=== PATIENT | female | born 1955 | race Caucasian/White ===

== ENCOUNTER 2018-04-02 11:15 | Emergency (ER) | payer MEDICARE, SELFPAY ==
[~2018-04-02] VITALS: Ht 165.1 cm; Wt 104.3 kg
[~2018-04-02 11:15] MED LIST: ASPI81CH PO; CEPH500 PO; CRUTCH3 USE; CYCL10; CYCL10 PO; Ferrous Sulfat325 M2 PO; GLIP5 PO; HYDACE5 PO; HYDCHL25; HYDCHL25 PO; LOSARTAN-HCTZ1 EAC1 PO; NAPR550 PO; Naprosyn500 MG PO; PANT40 PO; Pravastatin Sod20 MG PO; SPIR25; SPIR25 PO; SULTRIDS PO; Ultram50 MG PO; [UNRECOGNIZED DRUG - OTHER]
[2018-04-02] MEDS ORDERED: BECL25NI (12:45)
[2018-04-02] MEDS ORDERED: ERY PO (12:45)
[2018-04-02] MEDS ORDERED: ROBITUSSIN COU237 ML PO (12:45)
== END 2018-04-02 12:54 | disposition home or self-care (01) ==
LOC: ER 11:15
DX: J40 Bronchitis, not specified as acute or chronic (principal); J01.90 Acute sinusitis, unspecified; B96.89 Other specified bacterial agents as the cause of diseases classified elsewhere; I10 Essential (primary) hypertension; Z91.018 Allergy to other foods; Z91.011 Allergy to milk products; Z88.0 Allergy status to penicillin; Z91.02 Food additives allergy status; Z79.899 Other long term (current) drug therapy; Z79.82 Long term (current) use of aspirin

== ENCOUNTER 2018-11-06 12:14 | Emergency (ER) | payer MEDICAID ==
[~2018-11-06] VITALS: Ht 165.1 cm; Wt 104.3 kg
[~2018-11-06 12:14] MED LIST changes: +BECL25NI; +ERY PO; +ROBITUSSIN COU237 ML PO
== END 2018-11-06 13:42 | disposition left against medical advice (07) ==
LOC: ER 12:14
DX: K08.89 Other specified disorders of teeth and supporting structures (principal)
CPT/HCPCS: 99282

== ENCOUNTER → 2019-03-21 | Outpatient (CLI) | payer MEDICARE | END | disposition home or self-care (01) | LOC: LAB SHORT 11:46 → LAB 11:46 | DX: N89.8 Other specified noninflammatory disorders of vagina (principal) | CPT/HCPCS: 87070; 87077; 87147; 87186; 87205 ==

== ENCOUNTER 2019-03-27 11:49 | Emergency (ER) | payer MEDICARE ==
[~2019-03-27] VITALS: Ht 165.1 cm; Wt 99.8 kg
[2019-03-27 12:42] LABS: BASOPHILS ABSOLUTE AUTO 0.06 K/mm3 (0.00-0.23); BASOPHILS PERCENT AUTO 1 % (0-2); EOSINOPHILS ABSOLUTE AUTO 0.15 K/mm3 (0.00-0.68); EOSINOPHILS PERCENT AUTO 3 % (0-6); Hematocrit 42.3 % (33.0-51.0); Hemoglobin 14.1 g/dL (11.5-16.0); IMMATURE GRAN ABSOLUTE AUTO 0.02 K/mm3 (0.00-0.10); IMMATURE GRAN PERCENT AUTO 0 % (0-1); LYMPHOCYTES ABSOLUTE AUTO 0.79 K/mm3 (0.84-5.20); LYMPHOCYTES PERCENT AUTO 15 % (21-46); MONOCYTES ABSOLUTE AUTO 0.65 K/mm3 (0.16-1.47); MONOCYTES PERCENT AUTO 12 % (4-13); Mean Corpuscular HGB 28.3 pg (26.0-34.0); Mean Corpuscular HGB Conc 33.3 g/dL (31.5-36.5); Mean Corpuscular Volume 85 fL (80-100); Mean Platelet Volume 9.9 fL (9.1-12.4); NEUTROPHILS ABSOLUTE AUTO 3.72 K/mm3 (1.96-9.15); NEUTROPHILS PERCENT AUTO 69 % (41-73); Platelet Count 282 K/mm3 (150-400); RDW Coefficient Variation 13.2 % (11.7-14.2); Red Blood Cell Count 4.98 M/mm3 (3.80-5.20); White Blood Cell Count 5.39 K/mm3 (4.00-11.30)
[2019-03-27 13:14] LABS: Alanine Aminotransfer (ALT/SGP 28 U/L (12-78); Alk Phos 86 U/L (50-136); Anion Gap 7 mmol/L (6-16); Aspartate Aminotrans (AST/SGOT 13 U/L (12-37); Bilirubin, Total 0.3 mg/dL (0.1-1.0); Blood Urea Nitrogen 27 mg/dL (8-24); Bun/Creatinine Ratio 34.3 (12.0-20.0); CO2, Blood 26 mmol/L (21-32); Calcium, Blood 9.4 mg/dL (8.5-10.1); Chloride, Blood 103 mmol/L (98-108); Creatinine, Blood 0.79 mg/dL (0.40-1.00); Globulin, Blood 4.2 g/dL (2.2-4.0); Glomerular Filtration Rate >60 (60-); Glucose, Blood 235 mg/dL (70-99); Potassium, Blood 3.7 mmol/L (3.5-5.5); Sodium, Blood 136 mmol/L (136-145); Total Protein, Blood 8.2 g/dL (6.4-8.2)
[2019-03-27 13:16] LABS: Troponin I <0.015 ng/mL (0.000-0.040)
== END 2019-03-27 16:04 | disposition home or self-care (01) ==
LOC: ER 11:49
PROVIDERS: Physician Assistant
DX: Z77.098 Contact with and (suspected) exposure to other hazardous, chiefly nonmedicinal, chemicals (principal); R06.00 Dyspnea, unspecified; R51 Headache; R05 Cough; E11.9 Type 2 diabetes mellitus without complications; I10 Essential (primary) hypertension; Z88.0 Allergy status to penicillin; Z91.018 Allergy to other foods; Z91.011 Allergy to milk products; Z79.82 Long term (current) use of aspirin; Z79.899 Other long term (current) drug therapy
CPT/HCPCS: 36415; 71046; 80053; 84484; 85025; 93005; 93010; 96374; 96375; 99284-25; J1885; J2930

== ENCOUNTER → 2019-04-09 | Outpatient (CLI) | payer MEDICARE, OTHER ==
[~2019-04-09] MED LIST changes: +METPRE4DP PO
== END | disposition home or self-care (01) ==
LOC: LAB UCHC 16:03 → LAB SHORT 16:03
DX: A49.02 Methicillin resistant Staphylococcus aureus infection, unspecified site (principal); N89.8 Other specified noninflammatory disorders of vagina
CPT/HCPCS: 87070; 87081; 87186; 87205

== ENCOUNTER → 2019-05-07 | Outpatient (CLI) | payer MEDICARE, OTHER | END | disposition home or self-care (01) | LOC: LAB 15:50 → LAB SHORT 15:50 | DX: A49.02 Methicillin resistant Staphylococcus aureus infection, unspecified site (principal); N89.8 Other specified noninflammatory disorders of vagina | CPT/HCPCS: 87070; 87077; 87081; 87147; 87186; 87205 ==

== ENCOUNTER → 2019-05-20 | Outpatient (CLI) | payer MEDICARE, OTHER | END | disposition home or self-care (01) | LOC: LAB 11:00 → LAB SHORT 11:00 | DX: A49.02 Methicillin resistant Staphylococcus aureus infection, unspecified site (principal) | CPT/HCPCS: 87070; 87077; 87081; 87147; 87186; 87205 ==

== ENCOUNTER 2019-10-25 18:01 | Emergency (ER) | payer OTHER, MEDICARE ==
[~2019-10-25] VITALS: Ht 165.1 cm; Wt 90.7 kg
[2019-10-25] MEDS ORDERED: METF500 PO (20:16)
== END 2019-10-25 22:03 | disposition home or self-care (01) ==
LOC: ER 18:01
DX: S09.90XA Unspecified injury of head, initial encounter (principal); S16.1XXA Strain of muscle, fascia and tendon at neck level, initial encounter; I11.0 Hypertensive heart disease with heart failure; I50.9 Heart failure, unspecified; E11.9 Type 2 diabetes mellitus without complications; E78.5 Hyperlipidemia, unspecified; V89.2XXA Person injured in unspecified motor-vehicle accident, traffic, initial encounter
CPT/HCPCS: 70450; 72125; 99284-25

== ENCOUNTER 2020-01-20 12:51 | Emergency (ER) | payer MEDICARE, OTHER ==
[~2020-01-20] VITALS: Ht 165.1 cm; Wt 104.3 kg
[~2020-01-20 12:51] MED LIST changes: +METF500 PO
== END 2020-01-20 14:23 | disposition left against medical advice (07) ==
LOC: ER 12:51
DX: Z53.21 Procedure and treatment not carried out due to patient leaving prior to being seen by health care provider (principal)
CPT/HCPCS: 99281

== ENCOUNTER 2020-08-04 11:41 | Emergency (ER) | payer MEDICARE, OTHER ==
[~2020-08-04] VITALS: Ht 165.1 cm; Wt 104.3 kg
[2020-08-04] MEDS ORDERED: TUSSIN MUC100 MG/5 M PO (16:17)
[2020-08-04] MEDS ORDERED: ALBU90OI INH (16:17)
== END 2020-08-04 16:30 | disposition home or self-care (01) ==
LOC: ER 11:41
DX: R06.02 Shortness of breath (principal); Z88.0 Allergy status to penicillin; Z91.011 Allergy to milk products; Z91.018 Allergy to other foods; Z79.82 Long term (current) use of aspirin; Z79.899 Other long term (current) drug therapy; Z79.84 Long term (current) use of oral hypoglycemic drugs; I10 Essential (primary) hypertension; E11.9 Type 2 diabetes mellitus without complications
CPT/HCPCS: 99283

== ENCOUNTER 2021-02-14 10:50 | Inpatient (IN) | payer MEDICARE ==
[~2021-02-14] VITALS: Ht 165.1 cm; Wt 103.0 kg
[~2021-02-14 10:50] MED LIST changes: +ALBU90OI INH; -ASPI81CH PO; -LOSARTAN-HCTZ1 EAC1 PO; -METF500 PO; +TUSSIN MUC100 MG/5 M PO
[2021-02-14 11:42] LABS: BASOPHILS ABSOLUTE AUTO 0.04 K/mm3 (0.00-0.23); BASOPHILS PERCENT AUTO 1 % (0-2); EOSINOPHILS ABSOLUTE AUTO 0.02 K/mm3 (0.00-0.68); EOSINOPHILS PERCENT AUTO 0 % (0-6); Hematocrit 37.5 % (33.0-51.0); Hemoglobin 12.8 g/dL (11.5-16.0); IMMATURE GRAN ABSOLUTE AUTO 0.03 K/mm3 (0.00-0.10); IMMATURE GRAN PERCENT AUTO 0 % (0-1); LYMPHOCYTES ABSOLUTE AUTO 0.42 K/mm3 (0.84-5.20); LYMPHOCYTES PERCENT AUTO 5 % (21-46); MONOCYTES ABSOLUTE AUTO 0.66 K/mm3 (0.16-1.47); MONOCYTES PERCENT AUTO 8 % (4-13); Mean Corpuscular HGB 27.6 pg (26.0-34.0); Mean Corpuscular HGB Conc 34.1 g/dL (31.5-36.5); Mean Corpuscular Volume 81 fL (80-100); Mean Platelet Volume 9.7 fL (9.1-12.4); NEUTROPHILS ABSOLUTE AUTO 7.31 K/mm3 (1.96-9.15); NEUTROPHILS PERCENT AUTO 86 % (41-73); Platelet Count 331 K/mm3 (150-400); RDW Coefficient Variation 13.3 % (11.7-14.2); Red Blood Cell Count 4.63 M/mm3 (3.80-5.20); White Blood Cell Count 8.48 K/mm3 (4.00-11.30)
[2021-02-14 11:59] LABS: Alanine Aminotransfer (ALT/SGP 23 U/L (12-78); Albumin, Blood 3.7 g/dL (3.4-5.0); Albumin/Globulin Ratio 0.9 (0.8-1.8); Alk Phos 82 U/L (50-136); Anion Gap 8 mmol/L (6-16); Aspartate Aminotrans (AST/SGOT 20 U/L (12-37); Bilirubin, Total 0.4 mg/dL (0.1-1.0); Blood Urea Nitrogen 20 mg/dL (8-24); Bun/Creatinine Ratio 23.5 (12.0-20.0); CO2, Blood 26 mmol/L (21-32); Calcium, Blood 9.4 mg/dL (8.5-10.1); Chloride, Blood 99 mmol/L (98-108); Creatinine, Blood 0.85 mg/dL (0.40-1.00); Globulin, Blood 3.9 g/dL (2.2-4.0); Glomerular Filtration Rate >60 (60-); Glucose, Blood 391 mg/dL (70-99); Potassium, Blood 3.5 mmol/L (3.5-5.5); Sodium, Blood 133 mmol/L (136-145); Total Protein, Blood 7.6 g/dL (6.4-8.2)
[2021-02-14] MEDS ORDERED: GLUCOPHAGE1000 M1 PO (12:41)
[2021-02-14] MEDS ORDERED: GLIP5 PO (12:41)
[2021-02-14] MEDS ORDERED: LOSA50 PO (12:42)
[2021-02-14] MEDS ORDERED: HYDCHL25 PO (12:43)
[2021-02-14] MEDS ORDERED: SPIR50 PO (12:43)
[2021-02-14] MEDS ORDERED: Ventolin/Prove6.7 GM INH (12:44)
[2021-02-14] MEDS ORDERED: ASPI325EC PO (14:56)
[2021-02-14] MEDS ORDERED: IBU800 M1 PO (14:59)
[2021-02-14 16:23] LABS: Source, Urine Clean Catch
[2021-02-14 16:29] LABS: Appearance, Urine Clear (Clear); Bilirubin, Urine Neg (Neg); Blood, Urine Neg (Neg); Color, Urine Yellow (P-Yellow); Glucose Qualitative, Urine 4+ (Neg); Ketones, Urine 2+ (Neg); Leukocyte Esterase, Urine 1+ (Neg); Nitrite, Urine Neg (Neg); Protein, Urine 2+ (Neg); Urobilinogen, Urine NORM (Normal)
--- NOTE | 2021-02-14 16:37 | NUR ---
POC GLUCOSE WAS 242 AT 1637. ARMBAND WAS INVALID ON METER. LAB NOTIFIED.
[2021-02-14 16:44] LABS: Bacteria Few /hpf; Red Blood Cells, Urine Not Seen /hpf (0-2); Squamous Epithelial Cells Rare /hpf (Few); White Blood Cells, Urine 0-2 /hpf (0-5)
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
[2021-02-14 21:44] LABS: International Normalized Ratio 1.01; Prothrombin Time Results 10.8 Sec (9.7-11.5)
--- NOTE | 2021-02-14 21:49 | NUR ---
PT. TO BE TRANSFERRED TO PCU 12. REPORT GIVEN TO LUDWIN ALCARAZ.
[2021-02-15 04:17] LABS: BASOPHILS ABSOLUTE AUTO 0.06 K/mm3 (0.00-0.23); BASOPHILS PERCENT AUTO 1 % (0-2); EOSINOPHILS ABSOLUTE AUTO 0.13 K/mm3 (0.00-0.68); EOSINOPHILS PERCENT AUTO 2 % (0-6); Hematocrit 37.4 % (33.0-51.0); Hemoglobin 12.5 g/dL (11.5-16.0); IMMATURE GRAN ABSOLUTE AUTO 0.02 K/mm3 (0.00-0.10); IMMATURE GRAN PERCENT AUTO 0 % (0-1); LYMPHOCYTES ABSOLUTE AUTO 1.05 K/mm3 (0.84-5.20); LYMPHOCYTES PERCENT AUTO 17 % (21-46); MONOCYTES ABSOLUTE AUTO 0.87 K/mm3 (0.16-1.47); MONOCYTES PERCENT AUTO 14 % (4-13); Mean Corpuscular HGB 27.2 pg (26.0-34.0); Mean Corpuscular HGB Conc 33.4 g/dL (31.5-36.5); Mean Corpuscular Volume 81 fL (80-100); Mean Platelet Volume 9.6 fL (9.1-12.4); NEUTROPHILS ABSOLUTE AUTO 4.15 K/mm3 (1.96-9.15); NEUTROPHILS PERCENT AUTO 66 % (41-73); Platelet Count 320 K/mm3 (150-400); RDW Coefficient Variation 13.5 % (11.7-14.2); RDW Standard Deviation 39.8 fL (35.1-46.3); White Blood Cell Count 6.28 K/mm3 (4.00-11.30)
[2021-02-15 04:43] LABS: Alanine Aminotransfer (ALT/SGP 24 U/L (12-78); Albumin, Blood 3.2 g/dL (3.4-5.0); Albumin/Globulin Ratio 0.9 (0.8-1.8); Alk Phos 78 U/L (50-136); Anion Gap 7 mmol/L (6-16); Aspartate Aminotrans (AST/SGOT 16 U/L (12-37); Bilirubin, Total 0.4 mg/dL (0.1-1.0); Blood Urea Nitrogen 18 mg/dL (8-24); CHOL/HDL RATIO 9.7; CO2, Blood 28 mmol/L (21-32); Calcium, Blood 8.9 mg/dL (8.5-10.1); Chloride, Blood 100 mmol/L (98-108); Cholesterol 203 mg/dL (50-200); Creatinine, Blood 0.95 mg/dL (0.40-1.00); Globulin, Blood 3.6 g/dL (2.2-4.0); Glomerular Filtration Rate >60 (60-); Glucose, Blood 311 mg/dL (70-99); HDL Cholesterol 21 mg/dL (>39); LDL/HDL RATIO Unable to Calculate; Low Density Lipoprotein Chol Unable to Calculate mg/dL (0-110); Magnesium, Blood 1.9 mg/dL (1.6-2.4); Potassium, Blood 3.5 mmol/L (3.5-5.5); Sodium, Blood 135 mmol/L (136-145); Total Protein, Blood 6.8 g/dL (6.4-8.2); Triglycerides 408 mg/dL (30-160); Very Low Density Lipoprot Chol Unable to Calculate mg/dL (6-32)
--- NOTE | 2021-02-15 05:42 | NUR ---
SHIFT SUMMARY PT RESTED SOME THROUGH NIGHT. APPEARS JESSA ALERT AND ORIENTED, BUT DOES THOUGHT PROCESS NOT ALWAYS CLEAR. PT DOES NOT USE CALL LIGHT WHEN NEEDING TO GET UP, PT ATTEMPTS TO STAND OR GET SELF UP WIHTOUT ASSISTANCE - BED ALARM ON. TROP TRENDING DOWN THIS AM - HEP GTT RUNNING PER PHARMACY. SCUFFS ON PT KNEES AND ELBOWS FROM PREVIOUS FALL DURING DAY. SATS >90% ON ROOM AIR. TELE NSR. VOIDING TO TOILET WITH STAND BY ASSISTANCE. NO BM. DOES C/O OF SOME PAIN IN KNEES AND ELBOWS. VSS. CALL LIGHT WTIHIN REACH, BED ALARM ON AND IN LOWEST POSITION. WILL CONTINUE TO MONITOR.
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
[2021-02-16 04:04] LABS: BASOPHILS ABSOLUTE AUTO 0.05 K/mm3 (0.00-0.23); BASOPHILS PERCENT AUTO 1 % (0-2); EOSINOPHILS ABSOLUTE AUTO 0.17 K/mm3 (0.00-0.68); EOSINOPHILS PERCENT AUTO 3 % (0-6); Hematocrit 34.8 % (33.0-51.0); Hemoglobin 11.6 g/dL (11.5-16.0); IMMATURE GRAN ABSOLUTE AUTO 0.02 K/mm3 (0.00-0.10); IMMATURE GRAN PERCENT AUTO 0 % (0-1); LYMPHOCYTES ABSOLUTE AUTO 0.86 K/mm3 (0.84-5.20); LYMPHOCYTES PERCENT AUTO 17 % (21-46); MONOCYTES ABSOLUTE AUTO 0.73 K/mm3 (0.16-1.47); MONOCYTES PERCENT AUTO 15 % (4-13); Mean Corpuscular HGB 27.5 pg (26.0-34.0); Mean Corpuscular HGB Conc 33.3 g/dL (31.5-36.5); Mean Corpuscular Volume 83 fL (80-100); Mean Platelet Volume 9.8 fL (9.1-12.4); NEUTROPHILS PERCENT AUTO 64 % (41-73); Platelet Count 275 K/mm3 (150-400); RDW Coefficient Variation 13.7 % (11.7-14.2); RDW Standard Deviation 40.4 fL (35.1-46.3); Red Blood Cell Count 4.22 M/mm3 (3.80-5.20); White Blood Cell Count 5.03 K/mm3 (4.00-11.30)
[2021-02-16 04:21] LABS: Alanine Aminotransfer (ALT/SGP 19 U/L (12-78); Albumin/Globulin Ratio 0.9 (0.8-1.8); Alk Phos 70 U/L (50-136); Anion Gap 6 mmol/L (6-16); Aspartate Aminotrans (AST/SGOT 13 U/L (12-37); Bilirubin, Total 0.4 mg/dL (0.1-1.0); Blood Urea Nitrogen 17 mg/dL (8-24); Bun/Creatinine Ratio 18.1 (12.0-20.0); CO2, Blood 27 mmol/L (21-32); Calcium, Blood 8.4 mg/dL (8.5-10.1); Chloride, Blood 103 mmol/L (98-108); Creatinine, Blood 0.94 mg/dL (0.40-1.00); Globulin, Blood 3.5 g/dL (2.2-4.0); Glomerular Filtration Rate >60 (60-); Glucose, Blood 317 mg/dL (70-99); Potassium, Blood 3.8 mmol/L (3.5-5.5); Sodium, Blood 136 mmol/L (136-145); Total Protein, Blood 6.5 g/dL (6.4-8.2)
--- NOTE | 2021-02-16 04:47 | NUR ---
SHIFT SUMMARY PATIENT IS A&O X4, CAN BE FORGETFUL AT TIMES, DOES NOT ALWAYS USE CALL LIGHT BEFORE TRYING TO GET OUT OF BED. BED ALARM ON AND PT TEACHING ABOUT SAFETY PROVIDED SEVERAL TIMES. 1 PERSON ASSIST WITH FWW, REPOSITIONS SELF IN BED. PATIENT REFUSED INSULIN AFTER PT TEACHING PROVIDED SEVERAL TIMES ABOUT WHY METFORMIN WAS HELD AND THE NEED FOR INSULIN. CBG OF 350 CALLED TO HOSPITALIST. PATIENT IS UNRECEPTIVE TO TEACHING. PATIENT TEACHING ALSO PROVIDED ON ADA DIET AND PATIENT CONTINUES TO REQUEST SODA. PATIENT PULLED OUT TWO OF HER IVs, FOUND THEM LAYING ON FLOOR, PATIENT STATED "THEY WERE NOT NEEDED AND WERE ANNOYING HER". 02 SATS >95% ON RA. VSS, NO ACUTE CHANGES. CALL LIGHT IN REACH.
--- NOTE | 2021-02-16 15:33 | NUR ---
Because therapeutic alliance is already established, patient immediately picks up from our conversation yesterday. Patient is more emotional today as she shares personal stories and admits to some of the fears and worries that she has as she has to go through a rehab situation yet another time. I highlight the fact that even though she has had many terrible things happen in her life she has overcome them all and she continues to be a bright light. I provide therapeutic listening, pastoral enrollment counselor and prayer. Patient responds well and displays evidence of restored nahum. I will continue to remain available to patient and family.
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
[2021-02-17 04:41] LABS: Hematocrit 33.8 % (33.0-51.0); Hemoglobin 11.1 g/dL (11.5-16.0); Mean Corpuscular HGB 27.3 pg (26.0-34.0); Mean Corpuscular HGB Conc 32.8 g/dL (31.5-36.5); Mean Corpuscular Volume 83 fL (80-100); Mean Platelet Volume 9.5 fL (9.1-12.4); Platelet Count 259 K/mm3 (150-400); RDW Coefficient Variation 13.7 % (11.7-14.2); RDW Standard Deviation 41.8 fL (35.1-46.3); Red Blood Cell Count 4.07 M/mm3 (3.80-5.20); White Blood Cell Count 5.03 K/mm3 (4.00-11.30)
[2021-02-17 05:05] LABS: Alanine Aminotransfer (ALT/SGP 19 U/L (12-78); Albumin, Blood 2.8 g/dL (3.4-5.0); Albumin/Globulin Ratio 0.8 (0.8-1.8); Alk Phos 66 U/L (50-136); Anion Gap 7 mmol/L (6-16); Aspartate Aminotrans (AST/SGOT 11 U/L (12-37); Bilirubin, Total 0.5 mg/dL (0.1-1.0); Blood Urea Nitrogen 20 mg/dL (8-24); Bun/Creatinine Ratio 23.1 (12.0-20.0); CO2, Blood 25 mmol/L (21-32); Calcium, Blood 8.4 mg/dL (8.5-10.1); Chloride, Blood 106 mmol/L (98-108); Creatinine, Blood 0.87 mg/dL (0.40-1.00); Globulin, Blood 3.3 g/dL (2.2-4.0); Glomerular Filtration Rate >60 (60-); Glucose, Blood 262 mg/dL (70-99); Magnesium, Blood 1.5 mg/dL (1.6-2.4); Potassium, Blood 3.7 mmol/L (3.5-5.5); Sodium, Blood 138 mmol/L (136-145); Total Protein, Blood 6.1 g/dL (6.4-8.2)
--- NOTE | 2021-02-17 06:28 | NUR ---
NO ACUTE CHANGES THROUGHOUT THIS SHIFT. PT SLEPT FOR APPX 6 HOURS TONIGHT. PT TOLERATED AMBULATION WITH A WALKER, AND SBA TO BRP WITHOUT DIFFICULTIES. MAGNESIUM IVPB INFUSING WITHOUT DIFFICULTY THIS AM. WILL CONTINUE TO MONITOR UNTIL AM SHIFT. CALL LIGHT WITHIN REACH. BED IN LOW POSITION.
--- NOTE | 2021-02-17 13:34 | NUR ---
NO ACUTE EVENTS THIS HALF OF SHIFT, VSS. PATIENT IS ALERT AND ORIENTED, BUT WILL TALK OVER STAFF AND FOCUS CONVERSATION ON THE NEWS ON TV WHEN STAFF IS DISCUSSING PLAN OF CARE FOR THE DAY. PATIENT WORKED WITH PT/OT, TOLERATED WELL. PATIENT GIVEN MEDICATIONS PER EMAR, PATIENT AGREED TO TAKING MORNING MEDICATIONS. REPORT GIVEN TO KISHA ALCARAZ ON MEDICAL.
--- NOTE | 2021-02-17 15:22 | NUR ---
PT IS A PCU TRANSFER, A 65Y/F, WHO WAS ADMITTED FOR L HEMEPARESIS. PT HAD A HX OF OLD CVA, HTN, DM2. PT CAME IN WITH ELEVATED TROPONIN WITHOUT EKG CHANGES NOTED. PT VSS, ON RA AND NO TELE. PT STATED SHE FELL ONCE, THAT IS THE REASON SHE HAS MULTIPLE ABRASIONS TO HER ARM AND L KNEES. MAG AND CALCIUM WAS LOW. MAG RIDER WAS GIVEN AT PCU. PT PULLED IV YESTERDAY PER REPORT, ENCOURAGE THE PT TO KEEP IV FOR MEDICATION PURPOSES. PT IS AC/HS. PT REFUSES INSULIN AT TIMES PER REPORT. PT IS A STAND BY ASSIST TO BATHROOM. PT WORKED WITH PT/OT. PT WILL BE DISCHARGE TOMORROW PER NOTE. BED IS IN THE LOWEST POSITION AND CALL LIGHT WITHIN REACH
[2021-02-18 05:09] LABS: Hemoglobin 11.6 g/dL (11.5-16.0); Mean Corpuscular HGB 27.5 pg (26.0-34.0); Mean Corpuscular HGB Conc 33.1 g/dL (31.5-36.5); Mean Corpuscular Volume 83 fL (80-100); Mean Platelet Volume 9.2 fL (9.1-12.4); Platelet Count 280 K/mm3 (150-400); RDW Coefficient Variation 13.9 % (11.7-14.2); RDW Standard Deviation 41.8 fL (35.1-46.3); Red Blood Cell Count 4.22 M/mm3 (3.80-5.20); White Blood Cell Count 6.06 K/mm3 (4.00-11.30)
[2021-02-18 05:28] LABS: Alanine Aminotransfer (ALT/SGP 24 U/L (12-78); Albumin, Blood 2.9 g/dL (3.4-5.0); Albumin/Globulin Ratio 0.9 (0.8-1.8); Alk Phos 67 U/L (50-136); Anion Gap 6 mmol/L (6-16); Aspartate Aminotrans (AST/SGOT 24 U/L (12-37); Bilirubin, Total 0.3 mg/dL (0.1-1.0); Blood Urea Nitrogen 20 mg/dL (8-24); Bun/Creatinine Ratio 23.3 (12.0-20.0); CO2, Blood 26 mmol/L (21-32); Calcium, Blood 8.7 mg/dL (8.5-10.1); Chloride, Blood 107 mmol/L (98-108); Creatinine, Blood 0.86 mg/dL (0.40-1.00); Globulin, Blood 3.4 g/dL (2.2-4.0); Glomerular Filtration Rate >60 (60-); Glucose, Blood 250 mg/dL (70-99); Potassium, Blood 4.1 mmol/L (3.5-5.5); Sodium, Blood 139 mmol/L (136-145); Total Protein, Blood 6.3 g/dL (6.4-8.2)
--- NOTE | 2021-02-18 06:00 | NUR ---
SHIFT SUMMARY: PATIENT IS A&OX 3, VSS, IMPULSIVE AND DOES NOT WAIT FOR STAFF TO HELP OOB, BED ALARM IS ON. VSS, REPORTED TOOTH ACHE PAIN 10/10, TYLENOL WAS GIVEN WITH GOOD EFFECT.
--- NOTE | 2021-02-18 11:38 | NUR ---
ETHICS PT TALKED WITH PT IN THE ROOM ABOUT SAFETY CONCERNS ABOUT DRIVING UPON DISCHARGE- SEE OT NOTES FOR FURTHER ASSESSMENT. AFTER A CONVERSATION WITH ROBSON, SHE FINALLY AGREED TO GO TO SNF. INFORMED THE PERSONNEL RESEARCH PSYCHOLOGIST ABOUT THE PATIENT CHANGED OF PLANS.
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
--- NOTE | 2021-02-18 17:57 | NUR ---
SHIFT SUMMARY PT SUPPOSEDLY DISCHARGE TODAY; DELAYED DUE TO SAFE DISCHARGE- SEE PREVIOUS NOTES. PT STATED THAT SHE HAS GLASSES IS IN HER CAR AND WOULD LIKE TO GET IT IF POSSIBLE AND SHOW THAT SHE CAN READ WITHOUT PROBLEM WITH HER GLASSES . PT ALSO AGREED FOR SNF; HOWEVER MIGHT NOT QUALIFY PER TRUCK DRIVER RUBBISH COLLECTOR- SEE TRUCK DRIVER RUBBISH COLLECTOR NOTES. PT AGREED HOME HEALTH FOR MEDICATION MANAGEMENT OR ANY THERAPY OUTPATIENT IF SHE NEEDS TO. PT WOULD LIKE TO GO HOME TOMORROW. AWARE ABOUT THE SITUATION. PT PULLED HER IV THINKING THAT SHE WAS LEAVING THIS AM. MEDICATED PT FOR HEADACHE AND BACK PAIN. PT ALSO RECEIVED INSULIN THIS MORNING. BED IS IN THE LOWEST POSITION AND CALL LIGHT WITHIN REACH
[2021-02-19 05:43] LABS: Alanine Aminotransfer (ALT/SGP 28 U/L (12-78); Albumin, Blood 2.8 g/dL (3.4-5.0); Albumin/Globulin Ratio 0.8 (0.8-1.8); Alk Phos 62 U/L (50-136); Anion Gap 7 mmol/L (6-16); Aspartate Aminotrans (AST/SGOT 27 U/L (12-37); Bilirubin, Total 0.3 mg/dL (0.1-1.0); Blood Urea Nitrogen 18 mg/dL (8-24); CO2, Blood 25 mmol/L (21-32); Calcium, Blood 8.4 mg/dL (8.5-10.1); Chloride, Blood 107 mmol/L (98-108); Globulin, Blood 3.4 g/dL (2.2-4.0); Glomerular Filtration Rate >60 (60-); Glucose, Blood 235 mg/dL (70-99); Potassium, Blood 4.3 mmol/L (3.5-5.5); Sodium, Blood 139 mmol/L (136-145); Total Protein, Blood 6.2 g/dL (6.4-8.2)
[2021-02-19 05:45] LABS: BASOPHILS ABSOLUTE AUTO 0.04 K/mm3 (0.00-0.23); BASOPHILS PERCENT AUTO 1 % (0-2); EOSINOPHILS ABSOLUTE AUTO 0.26 K/mm3 (0.00-0.68); EOSINOPHILS PERCENT AUTO 5 % (0-6); Hematocrit 34.7 % (33.0-51.0); Hemoglobin 11.8 g/dL (11.5-16.0); IMMATURE GRAN ABSOLUTE AUTO 0.04 K/mm3 (0.00-0.10); IMMATURE GRAN PERCENT AUTO 1 % (0-1); LYMPHOCYTES PERCENT AUTO 19 % (21-46); MONOCYTES ABSOLUTE AUTO 0.61 K/mm3 (0.16-1.47); MONOCYTES PERCENT AUTO 11 % (4-13); Mean Corpuscular Volume 82 fL (80-100); NEUTROPHILS ABSOLUTE AUTO 3.43 K/mm3 (1.96-9.15); NEUTROPHILS PERCENT AUTO 64 % (41-73); RDW Coefficient Variation 14.2 % (11.7-14.2); RDW Standard Deviation 41.3 fL (35.1-46.3); Red Blood Cell Count 4.21 M/mm3 (3.80-5.20); White Blood Cell Count 5.38 K/mm3 (4.00-11.30)
[2021-02-19 06:14] LABS: Platelet Count 254 K/mm3 (150-400)
--- NOTE | 2021-02-19 07:15 | NUR ---
SHIFT SUMMARY PT IS A 65 Y/O FEMALE, ADMITTED FOR L HEMIPARESIS R/T A CVA AND FALL AT HOME. PT IS A&O X 3, FORGETFUL AT TIMES. SBA TO THE BATHROOM. SHE WAS MEDICATED ONCE THIS AM FOR A TOOTH AND HEADACHE. NO C/O NAUSEA OR SOB. VITAL SIGNS STABLE. NO ACUTE CHANGES IN PT CONDITION NOTED. REPORT GIVEN TO ONCOMING RN.
[2021-02-19] MEDS ORDERED: ASPI81CH PO (12:41)
[2021-02-19] MEDS ORDERED: ALOGLIPTIN25 M1 PO (12:44)
[2021-02-19] MEDS ORDERED: ATOR40TA PO (12:45)
[2021-02-19] MEDS ORDERED: CLOP75 PO (12:47)
[2021-02-19] MEDS ORDERED: INSULANPEN SC (12:49)
[2021-02-19] MEDS ORDERED: HUMALOG KW100 UNIT/1 SC (12:52)
[2021-02-19] MEDS ORDERED: METO25 PO (12:53)
[2021-02-19] MEDS ORDERED: PANT20 PO (12:55)
--- NOTE | 2021-02-19 16:33 | NUR ---
PT WAS DISCHARGED ALERT AND ORIENTED WITH BELONGINGS AT SIDE. PT WAS EDUCATED ON DIABETIC MANAGEMENT, WAS GIVEN SUPPLIES AND ABLE TO TEACH BACK ON HOW TO USE FOR INSULIN ADMINISTRATION. PT WAS ALSO EDUCATED ON SS OF STROKE AND WHEN TO REPORTT TO THE ED. PT WAS NON-RECEPTIVE TO OUR RECOMENDATIONS TO NOT DRIVE A MOTORIZED VEHICLE. PT WAS INFORMED ON FOLLOW UP APPOINTMENTS NEEDED AND WAS ABLE TO VERBALIZE AND TEACH BACK INSTRUCTIONS. PT MADE NO COMPLAINTS AT THE TIME OF DISCHARGE.
--- NOTE | 2021-02-27 15:27 | NUR ---
02/27/21 1500 PT CALLED BECAUSE SHE WAS ALMOST OUT OF ACC U CHECK STRIPS SO I GOT AN ORDER FROM DR BRASWELL AND CALLED IT IN TO [facility] FOR ONE MONTH SUPPLY SHE SAID SHE DID NOT WANT HOME HEALTH AND SHE COULD TAKE CARE OF HER SELF. SHE ALSO SAID SHE WAS DRIVING EVEN AFTER RECEIVING DR. TOLD HER NOT TO DRIVE DUE TO POOR VISION AND ANGER BEHIND THE WHEEL AND SHE HAD A STROKE. SHE ALSO SAID SHE WAS NOT GOING TO TAKE HER NEW MEDICATION AND HER INSULIN BECAUSE SHE WAS GOING BACK ON METFORIN.SHE IS ALSO MAD THAT THE CARDIOGIST DR MCNALLY LEFT TOWN AND DID NOT TELL HER SO SHE THINKS SHE DOESNT HAVE A HEART DOCTOR AND WILL HAVE TO GO TO TO [place]. THIS RN TALKED TO HER FOR 25 MINUTES TELLING HER NOT TO DRIVE AND SHE SHOULD TAKE HER INSULIN BECAUSE HER METFORIN WAS NOT ADEQUATELY WORKING HER A1C WAS OVER 11.7. I DONT THINK SHE UNDERSTOOD ANYTHING I SAID. BACK TO [place]. SHE HAS A REFEERAL FOR DR ESQUIVEL IN 2-4 WEEKS AND SHE SAYS SHE DOES NOT HAVE A DR BECAUSE SHE WON'T GO TO HER PA BECAUSE THEY ARE "QUACKS" THIS RN WAS ON THE PHONE WITH HER FOR 25 MINUTES TRYING TO EXPLAIN THAT SHE NEEDED TO TAKE INSULIN BECASEU THE METFORIN WAS NOT KEEPING HER BLOOD SUGAR STABLE ac TO [place] BUT WE NEED TO SET IT UP FOR HER BECAUSE SHE THINKS SHE NEED HEART SURGERY
== END 2021-02-19 14:54 | disposition home health service (06) | DRG 64 ==
LOC: ER 10:50 → MEDS 14:44 → PCU 14:44 → MEDS 16:02 → PCU 21:53 → MEDS 02-17 13:35 → ENPENDDIS 02-19 11:46 → MEDS 02-19 14:54
PROVIDERS: Emergency Medicine; Pharmacist; ADMIT Internal Medicine
DX: I63.89 Other cerebral infarction (principal); I21.A1 Myocardial infarction type 2; G81.94 Hemiplegia, unspecified affecting left nondominant side; I48.92 Unspecified atrial flutter; Q21.1 Atrial septal defect; E22.2 Syndrome of inappropriate secretion of antidiuretic hormone; E66.01 Morbid (severe) obesity due to excess calories; F01.50 Vascular dementia, unspecified severity, without behavioral disturbance, psychotic disturbance, mood disturbance, and anxiety; E78.5 Hyperlipidemia, unspecified; I10 Essential (primary) hypertension; T50.2X5A Adverse effect of carbonic-anhydrase inhibitors, benzothiadiazides and other diuretics, initial encounter; R29.810 Facial weakness; E11.65 Type 2 diabetes mellitus with hyperglycemia; Z91.02 Food additives allergy status; Z91.011 Allergy to milk products; Z88.5 Allergy status to narcotic agent; Z88.8 Allergy status to other drugs, medicaments and biological substances; Z91.018 Allergy to other foods; Z79.84 Long term (current) use of oral hypoglycemic drugs; Z79.899 Other long term (current) drug therapy; Z68.36 Body mass index [BMI] 36.0-36.9, adult; Z87.11 Personal history of peptic ulcer disease; Z90.710 Acquired absence of both cervix and uterus; Z90.49 Acquired absence of other specified parts of digestive tract; Z98.890 Other specified postprocedural states; Z91.14 Patient's other noncompliance with medication regimen
CPT/HCPCS: 36415; 70450; 70496; 70498; 70551; 71046; 71275; 74175; 80053; 80061; 81001; 82947; 83036; 83735; 84443; 84484; 85025; 85027; 85610; 85730; 87081; 87086; 92507; 92523; 93005; 93010; 93306; 94760; 97110; 97112; 97116; 97129; 97162; 97166; 97530; 97535; 99285-25; A9270; C9113; J1644; J1650; J3475; J7030; Q9967

== ENCOUNTER → 2021-10-01 | Outpatient (CLI) | payer MEDICARE ==
[~2021-10-01] MED LIST changes: +ALOGLIPTIN25 M1 PO; +ASPI325EC PO; +ASPI81CH PO; +ATOR40TA PO; +CLOP75 PO; +GLUCOPHAGE1000 M1 PO; +HUMALOG KW100 UNIT/1 SC; +IBU800 M1 PO; +INSULANPEN SC; +LOSA50 PO; +METO25 PO; +PANT20 PO; +SPIR50 PO; +Ventolin/Prove6.7 GM INH
[2021-10-01 18:48] LABS: BASOPHILS ABSOLUTE AUTO 0.07 K/mm3 (0.00-0.23); BASOPHILS PERCENT AUTO 1 % (0-2); EOSINOPHILS ABSOLUTE AUTO 0.17 K/mm3 (0.00-0.68); EOSINOPHILS PERCENT AUTO 3 % (0-6); Hemoglobin 13.1 g/dL (11.5-16.0); IMMATURE GRAN ABSOLUTE AUTO 0.02 K/mm3 (0.00-0.10); IMMATURE GRAN PERCENT AUTO 0 % (0-1); LYMPHOCYTES ABSOLUTE AUTO 1.04 K/mm3 (0.84-5.20); LYMPHOCYTES PERCENT AUTO 17 % (21-46); MONOCYTES PERCENT AUTO 10 % (4-13); Mean Corpuscular HGB 27.8 pg (26.0-34.0); Mean Corpuscular HGB Conc 33.6 g/dL (31.5-36.5); Mean Corpuscular Volume 83 fL (80-100); Mean Platelet Volume 10.2 fL (9.1-12.4); NEUTROPHILS ABSOLUTE AUTO 4.21 K/mm3 (1.96-9.15); NEUTROPHILS PERCENT AUTO 69 % (41-73); Platelet Count 345 K/mm3 (150-400); RDW Standard Deviation 36.9 fL (35.1-46.3); Red Blood Cell Count 4.71 M/mm3 (3.80-5.20); White Blood Cell Count 6.11 K/mm3 (4.00-11.30)
[2021-10-01 19:34] LABS: Alanine Aminotransfer (ALT/SGP 20 U/L (12-78); Albumin, Blood 3.4 g/dL (3.4-5.0); Albumin/Globulin Ratio 0.8 (0.8-1.8); Alk Phos 95 U/L (50-136); Anion Gap 7 mmol/L (6-16); Aspartate Aminotrans (AST/SGOT 7 U/L (12-37); Bilirubin, Total 0.3 mg/dL (0.1-1.0); Blood Urea Nitrogen 22 mg/dL (8-24); CHOL/HDL RATIO 10.4; CO2, Blood 29 mmol/L (21-32); Calcium, Blood 9.2 mg/dL (8.5-10.1); Chloride, Blood 95 mmol/L (98-108); Cholesterol 219 mg/dL (50-200); Globulin, Blood 4.2 g/dL (2.2-4.0); Glucose, Blood 463 mg/dL (70-99); HDL Cholesterol 21 mg/dL (>39); LDL/HDL RATIO Unable to Calculate; Low Density Lipoprotein Chol Unable to Calculate mg/dL (0-110); Sodium, Blood 131 mmol/L (136-145); Total Protein, Blood 7.6 g/dL (6.4-8.2); Triglycerides 435 mg/dL (30-160); Very Low Density Lipoprot Chol Unable to Calculate mg/dL (6-32)
[2021-10-01 19:42] LABS: Creatinine, Blood 0.82 mg/dL (0.40-1.00); Free Thyroxine 1.04 ng/dL (0.70-1.60); Glomerular Filtration Rate >60 (60-); Thyroid Stimulating Hormone 0.831 uIU/mL (0.360-4.800)
[2021-10-01 20:52] LABS: Creatinine, Urine Random 36.7 mg/dL (27.00-270.00); Microalb/Creat Ratio UR, Rand 17.493 mg/g (0.000-30.000); Microalbumin, Random Urine 6.42 mg/L (0.000-20.000)
== END | disposition home or self-care (01) ==
LOC: LAB 17:29 → LAB SHORT 17:29
PROVIDERS: Nurse Practitioner Family
DX: E11.69 Type 2 diabetes mellitus with other specified complication (principal); E78.5 Hyperlipidemia, unspecified; R30.9 Painful micturition, unspecified; I10 Essential (primary) hypertension
CPT/HCPCS: 80053; 80061; 82043; 82570; 84439; 84443; 85025; 87086

== ENCOUNTER 2023-08-29 22:50 | Emergency (ER) | payer MEDICARE ==
[~2023-08-29] VITALS: Ht 167.6 cm; Wt 81.7 kg
[2023-08-29 23:31] VITALS: BP 172/63
== END 2023-08-30 00:40 | disposition home or self-care (01) ==
LOC: ER 22:50
DX: S39.012A Strain of muscle, fascia and tendon of lower back, initial encounter (principal); I10 Essential (primary) hypertension; E11.9 Type 2 diabetes mellitus without complications; Z88.0 Allergy status to penicillin; Z91.02 Food additives allergy status; Z91.018 Allergy to other foods; Z79.899 Other long term (current) drug therapy; Z79.82 Long term (current) use of aspirin; W01.10XA Fall on same level from slipping, tripping and stumbling with subsequent striking against unspecified object, initial encounter
CPT/HCPCS: 72100; 99283-25; A9270

== ENCOUNTER 2023-10-11 14:36 | Emergency (ER) | payer MEDICARE ==
[~2023-10-11] VITALS: Ht 165.1 cm; Wt 86.2 kg
[2023-10-11] MEDS ORDERED: SPIR25 PO (15:21)
[2023-10-11] MEDS ORDERED: HYDCHL25 PO (15:21)
[2023-10-11] MEDS ORDERED: METF500 PO (15:22)
[2023-10-11 15:44] LABS: BASOPHILS ABSOLUTE AUTO 0.05 K/mm3 (0.00-0.23); BASOPHILS PERCENT AUTO 1 % (0-2); EOSINOPHILS ABSOLUTE AUTO 0.08 K/mm3 (0.00-0.68); EOSINOPHILS PERCENT AUTO 1 % (0-6); Hematocrit 39.4 % (33.0-51.0); Hemoglobin 13.6 g/dL (11.5-16.0); IMMATURE GRAN ABSOLUTE AUTO 0.02 K/mm3 (0.00-0.10); IMMATURE GRAN PERCENT AUTO 0 % (0-1); LYMPHOCYTES ABSOLUTE AUTO 1.03 K/mm3 (0.84-5.20); LYMPHOCYTES PERCENT AUTO 16 % (21-46); MONOCYTES ABSOLUTE AUTO 0.58 K/mm3 (0.16-1.47); MONOCYTES PERCENT AUTO 9 % (4-13); Mean Corpuscular HGB 29.3 pg (26.0-34.0); Mean Corpuscular HGB Conc 34.5 g/dL (31.5-36.5); Mean Corpuscular Volume 85 fL (80-100); Mean Platelet Volume 9.5 fL (9.1-12.4); NEUTROPHILS ABSOLUTE AUTO 4.75 K/mm3 (1.96-9.15); NEUTROPHILS PERCENT AUTO 73 % (41-73); Platelet Count 345 K/mm3 (150-400); RDW Coefficient Variation 12.9 % (11.7-14.2); RDW Standard Deviation 39.2 fL (35.1-46.3); Red Blood Cell Count 4.64 M/mm3 (3.80-5.20); White Blood Cell Count 6.51 K/mm3 (4.00-11.30)
[2023-10-11 16:15] LABS: Albumin, Blood 3.6 g/dL (3.4-5.0); Albumin/Globulin Ratio 0.9 (0.8-1.8); Bilirubin, Total 0.2 mg/dL (0.1-1.0); Bun/Creatinine Ratio 23.3 (12.0-20.0); Calcium, Blood 9.1 mg/dL (8.5-10.1); Creatinine, Blood 0.82 mg/dL (0.40-1.00); Globulin, Blood 3.8 g/dL (2.2-4.0); Potassium, Blood 3.8 mmol/L (3.5-5.5); Total Protein, Blood 7.4 g/dL (6.4-8.2)
[2023-10-11] MEDS ORDERED: CEFP200 PO (17:32)
[2023-10-11 17:37] VITALS: BP 127/57
== END 2023-10-11 17:52 | disposition home or self-care (01) ==
LOC: ER 14:36
PROVIDERS: Physician Assistant
DX: H74.8X2 Other specified disorders of left middle ear and mastoid (principal); N39.0 Urinary tract infection, site not specified; Z88.0 Allergy status to penicillin; Z91.018 Allergy to other foods; Z79.899 Other long term (current) drug therapy; Z79.84 Long term (current) use of oral hypoglycemic drugs; I10 Essential (primary) hypertension; E11.9 Type 2 diabetes mellitus without complications
CPT/HCPCS: 71046; 80053; 85025; 99283-25; A9270

== ENCOUNTER 2023-12-14 15:49 | Emergency (ER) | payer MEDICARE ==
[~2023-12-14] VITALS: Ht 165.1 cm; Wt 87.1 kg
[~2023-12-14 15:49] MED LIST changes: +CEFP200 PO; +METF500 PO
[2023-12-14 16:17] VITALS: BP 122/60
== END 2023-12-14 22:11 | disposition home or self-care (01) ==
LOC: ER 15:49
DX: S00.03XA Contusion of scalp, initial encounter (principal); W01.10XA Fall on same level from slipping, tripping and stumbling with subsequent striking against unspecified object, initial encounter; Z88.0 Allergy status to penicillin; Z91.018 Allergy to other foods; Z91.02 Food additives allergy status; Z79.899 Other long term (current) drug therapy; Z79.84 Long term (current) use of oral hypoglycemic drugs; I10 Essential (primary) hypertension; E11.9 Type 2 diabetes mellitus without complications
CPT/HCPCS: 96372; 99284

== ENCOUNTER 2023-12-18 07:56 | Emergency (ER) | payer MEDICARE ==
[~2023-12-18] VITALS: Ht 165.1 cm; Wt 86.2 kg
[2023-12-18 08:36] LABS: Source, Urine Straight Cath
[2023-12-18 08:54] LABS: Appearance, Urine Clear (Clear); Bilirubin, Urine Neg (Neg); Blood, Urine 2+ (Neg); Color, Urine Yellow (P-Yellow); Glucose Qualitative, Urine 4+ (Neg); Ketones, Urine 3+ (Neg); Leukocyte Esterase, Urine 1+ (Neg); Nitrite, Urine Neg (Neg); Protein, Urine 2+ (Neg); Urobilinogen, Urine NORM (Normal)
[2023-12-18 09:16] LABS: Influenza A, PCR NEGATIVE (NEGATIVE); Influenza B, PCR NEGATIVE (NEGATIVE); Resp Syncytial Virus, PCR NEGATIVE (NEGATIVE); SARS-Cov-2 (COVID-19) PCR, MMC NEGATIVE (NEGATIVE)
[2023-12-18 09:20] LABS: BASOPHILS ABSOLUTE AUTO 0.05 K/mm3 (0.00-0.23); BASOPHILS PERCENT AUTO 1 % (0-2); EOSINOPHILS ABSOLUTE AUTO 0.02 K/mm3 (0.00-0.68); EOSINOPHILS PERCENT AUTO 0 % (0-6); Hematocrit 36.3 % (33.0-51.0); Hemoglobin 12.8 g/dL (11.5-16.0); IMMATURE GRAN ABSOLUTE AUTO 0.02 K/mm3 (0.00-0.10); IMMATURE GRAN PERCENT AUTO 0 % (0-1); LYMPHOCYTES ABSOLUTE AUTO 0.65 K/mm3 (0.84-5.20); LYMPHOCYTES PERCENT AUTO 12 % (21-46); MONOCYTES ABSOLUTE AUTO 0.63 K/mm3 (0.16-1.47); MONOCYTES PERCENT AUTO 11 % (4-13); Mean Corpuscular HGB 29.9 pg (26.0-34.0); Mean Corpuscular HGB Conc 35.3 g/dL (31.5-36.5); Mean Corpuscular Volume 85 fL (80-100); Mean Platelet Volume 9.4 fL (9.1-12.4); NEUTROPHILS PERCENT AUTO 75 % (41-73); Platelet Count 310 K/mm3 (150-400); RDW Coefficient Variation 12.6 % (11.7-14.2); RDW Standard Deviation 38.4 fL (35.1-46.3); Red Blood Cell Count 4.28 M/mm3 (3.80-5.20); White Blood Cell Count 5.57 K/mm3 (4.00-11.30)
[2023-12-18 09:23] LABS: Bacteria Few /hpf; Hyaline Casts 0-2 /lpf (0-2); Squamous Epithelial Cells Few /hpf (Few)
[2023-12-18 09:38] LABS: Albumin, Blood 3.4 g/dL (3.4-5.0); Albumin/Globulin Ratio 0.9 (0.8-1.8); Bilirubin, Total 0.6 mg/dL (0.1-1.0); Bun/Creatinine Ratio 46.6 (12.0-20.0); Calcium, Blood 9.3 mg/dL (8.5-10.1); Creatinine, Blood 0.64 mg/dL (0.40-1.00); Globulin, Blood 3.9 g/dL (2.2-4.0); Potassium, Blood 3.5 mmol/L (3.5-5.5); Total Protein, Blood 7.3 g/dL (6.4-8.2)
[2023-12-18 12:41] VITALS: BP 116/73
== END 2023-12-18 13:56 | disposition home or self-care (01) ==
LOC: ER 07:56
PROVIDERS: Emergency Medicine
DX: R53.1 Weakness (principal); I10 Essential (primary) hypertension; E11.9 Type 2 diabetes mellitus without complications; Z79.84 Long term (current) use of oral hypoglycemic drugs; Z79.899 Other long term (current) drug therapy; Z88.0 Allergy status to penicillin; Z91.018 Allergy to other foods
CPT/HCPCS: 0241U; 73502; 80053; 81001; 84484; 85025; 87077; 87086; 87147; 87186; 93005; 93010; 96360; 99285-25; A9270; J7030

== ENCOUNTER 2024-02-23 17:48 | Inpatient (IN) | payer MEDICARE ==
[~2024-02-23] VITALS: Ht 165.1 cm; Wt 81.9 kg
[2024-02-23] MEDS ORDERED: Ketorolac Tromethamine 30mg Vial IV ONE (18:05)
[2024-02-23 18:55] LABS: BASOPHILS ABSOLUTE AUTO 0.04 K/mm3 (0.00-0.23); BASOPHILS PERCENT AUTO 1 % (0-2); EOSINOPHILS ABSOLUTE AUTO 0.08 K/mm3 (0.00-0.68); EOSINOPHILS PERCENT AUTO 1 % (0-6); Hematocrit 36.6 % (33.0-51.0); Hemoglobin 12.5 g/dL (11.5-16.0); IMMATURE GRAN ABSOLUTE AUTO 0.07 K/mm3 (0.00-0.10); IMMATURE GRAN PERCENT AUTO 1 % (0-1); LYMPHOCYTES ABSOLUTE AUTO 0.61 K/mm3 (0.84-5.20); LYMPHOCYTES PERCENT AUTO 7 % (21-46); MONOCYTES PERCENT AUTO 9 % (4-13); Mean Corpuscular HGB 29.5 pg (26.0-34.0); Mean Corpuscular HGB Conc 34.2 g/dL (31.5-36.5); Mean Corpuscular Volume 86 fL (80-100); Mean Platelet Volume 9.4 fL (9.1-12.4); NEUTROPHILS ABSOLUTE AUTO 6.72 K/mm3 (1.96-9.15); NEUTROPHILS PERCENT AUTO 82 % (41-73); Platelet Count 378 K/mm3 (150-400); RDW Coefficient Variation 12.8 % (11.7-14.2); RDW Standard Deviation 40.1 fL (35.1-46.3); Red Blood Cell Count 4.24 M/mm3 (3.80-5.20); White Blood Cell Count 8.22 K/mm3 (4.00-11.30)
[2024-02-23 19:15] LABS: Alanine Aminotransfer (ALT/SGP 23 U/L (12-78); Albumin, Blood 3.3 g/dL (3.4-5.0); Albumin/Globulin Ratio 0.9 (0.8-1.8); Alk Phos 103 U/L (50-136); Anion Gap 9 mmol/L (3-11); Aspartate Aminotrans (AST/SGOT 13 U/L (12-37); Bilirubin, Total 0.3 mg/dL (0.1-1.0); Blood Urea Nitrogen 38 mg/dL (8-24); Bun/Creatinine Ratio 53.1 (12.0-20.0); CO2, Blood 29 mmol/L (21-32); Calcium, Blood 9.2 mg/dL (8.5-10.1); Chloride, Blood 99 mmol/L (98-108); Creatinine, Blood 0.72 mg/dL (0.40-1.00); Globulin, Blood 3.8 g/dL (2.2-4.0); Glomerular Filtration Rate 91 (60-); Glucose, Blood 433 mg/dL (70-99); Potassium, Blood 4.3 mmol/L (3.5-5.5); Sodium, Blood 133 mmol/L (136-145); Total Protein, Blood 7.1 g/dL (6.4-8.2)
[2024-02-23] MEDS ORDERED: FentaNYL Citrate 50 MCG/ML 2 ML Injection IV ONE (19:15)
[2024-02-23] MEDS ORDERED: Acetaminophen 325 MG TABLET PO ONE (19:20)
[2024-02-23] MEDS ORDERED: HYDROcodone 10-APAP 325 TAB PO PRN (19:50)
[2024-02-23] MEDS ORDERED: FentaNYL Citrate 50 MCG/ML 2 ML Injection IV PRN (19:50)
[2024-02-23] MEDS ORDERED: Acetaminophen 325 MG TABLET PO PRN (19:55)
[2024-02-23] MEDS ORDERED: Naloxone HCl 0.4MG / ML 1ML Vial IV PRN (19:55)
[2024-02-23] MEDS ORDERED: Insulin Regular 100 UNIT/ML 10ML Vial SC SCH (21:00)
[2024-02-23] MEDS ORDERED: Docusate Sodium 100 MG Cap PO SCH (21:00)
--- NOTE | 2024-02-23 21:45 | NUR ---
ARRIVAL TO UNIT [place], TRANSFERRED OVER TO BED WITH SLIDING SHEET. PT TAKEN OUT OF CLOTHES ON PUT INTO A GOWN. PT VERY AGGITATED ABOUT HOW SHE WAS MOVED OVER TO BED. ATTEMPED TO REPOSTION PT TO HELP WITH PAIN, DID NOT HELP. PT MEDICATED PER EMAR. PT HAS EDEMA TO LE, ALONGWITH REDNESS UP TO THE KNEES, SKIN IS WARM TO TOUCH. PUREWICK PUT INTO PLACE. CALL LIGHT GIVEN TO PT, EDUCATED ON HOW TO USE. VSS. NO OTHER CONCERNS AT THIS TIME, PLAN FOR SURGERY TMRROW AT 0800
[2024-02-23 22:30] VITALS: BP 146/55
--- NOTE | 2024-02-23 22:30 | NUR ---
BLOOD SUGAR PT BS TAKEN AT TIME OF ARRIVAL. BS WAS 453, INSULIN IS ORDER, PT REFUSES TO TAKE INSULIN. STATES SHE TAKES METFORMIN AT HOME. CALL TO ABOUT BS AND REFUSAL OF INSULIN. NEW ORDERS GIVEN TO START HOME DOSE METFORMIN AND START GLIPIZIDE. PT AGREES WITH THIS TREATMENT. PT TOOK MEDICATIONS. NO OTHER CONCERNS AT THIS TIME, CALL LIGHT WITHIN REACH
[2024-02-23] MEDS ORDERED: MetFORMIN HCl 500 mg PO SCH (22:35)
[2024-02-23] MEDS ORDERED: GlipiZIDE 5 MG Tab PO SCH (22:35)
[2024-02-24] VITALS (16 sets, daily range): BP systolic 107–145; BP diastolic 48–650
--- NOTE | 2024-02-24 05:01 | NUR ---
SHIFT SUMMARY NO ACUTE CHANGES SINCE COMING TO THE FLOOR. PT WAS ABLE TO GET SOME SLEEP. PAIN MANAGED PER EMAR. PT RESISTANT TO SOME CARE. PT HAS NOT VOIDED SINCE COMING TO THE FLOOR, REFUSES BLADDER SCAN. STATES "MY BLADDER WORKS FINE" KELVIN JOE ATTENDS IN PLACE, BOTH DRY AT THIS TIME. PT HAS BEEN NPO SINCE MIDNIGHT. VSS. NO OTHER CONCERNS AT THIS TIME. CALL LIGHT WITHIN REACH
[2024-02-24] MEDS ORDERED: CeFAZolin Sodium 2,000 MG in NS 100 ML IV SCH ×2 (07:20→19:00)
[2024-02-24] MEDS ORDERED: propofoL 20 ML IV ONE ×2 (07:47→08:44)
[2024-02-24] MEDS ORDERED: propofoL 100 ML IV ONE (07:51)
[2024-02-24] MEDS ORDERED: FentaNYL Citrate 50 MCG/ML 2 ML Injection ONE (07:52)
--- NOTE | 2024-02-24 08:34 | NUR ---
0710-ANESTHESIA ROUNDING ON PT, OBTAINING CONSENT, NOC RN AND THIS RN IN ROOM. PT ASKING MANY QUESTIONS ABOUT MEDICAL RECORDS, REPORTING THAT NO ONE HAS HELPED HER WITH THIS FROM LAST ADMISSION. THIS RN AND ANESTHESIA MADE MULTIPLE ATTEMPTS TO EDUCATE PT ON THE IMPORTANCE OF PLANNING AND PRIORITIZATION, COMPLETING SURGICAL REPAIR OF HIP FX THEN PLANNING OTHER INTERVENTIONS AND PT NEEDS FOLLOWING THIS IMPORTANT FIRST STEP. PT APPEARS TO BE FIXATED ON OUTSIDE AND UNRELATED PSYCHOSOCIAL ISSUES. HR CONSULTANT CONSULT IN PLACE. 0750-DR KIMBLE IN ROOM FOR CONSENT. APPLIQUE CUTTER AND DR KIMBLE TRANSFERRED PT TO OR FOR SURGICAL INTERVENTION
[2024-02-24] MEDS ORDERED: Phenylephrine HCl 100 MCG/ML-NS 10MLSYR (1MG/10ML) ONE (08:54)
[2024-02-24] MEDS ORDERED: Dexamethasone Sod Phos 10 MG/ML 1ML VIAL ONE (09:26)
[2024-02-24] MEDS ORDERED: Ropivacaine 0.5% HCl/Pf 5 MG/ML 20ML VIAL ONE (09:53)
[2024-02-24 10:15] LABS: BASOPHILS ABSOLUTE AUTO 0.03 K/mm3 (0.00-0.23); BASOPHILS PERCENT AUTO 1 % (0-2); EOSINOPHILS ABSOLUTE AUTO 0.06 K/mm3 (0.00-0.68); EOSINOPHILS PERCENT AUTO 1 % (0-6); Hematocrit 29.8 % (33.0-51.0); Hemoglobin 10.2 g/dL (11.5-16.0); IMMATURE GRAN ABSOLUTE AUTO 0.03 K/mm3 (0.00-0.10); IMMATURE GRAN PERCENT AUTO 1 % (0-1); LYMPHOCYTES ABSOLUTE AUTO 0.52 K/mm3 (0.84-5.20); LYMPHOCYTES PERCENT AUTO 8 % (21-46); MONOCYTES ABSOLUTE AUTO 0.63 K/mm3 (0.16-1.47); MONOCYTES PERCENT AUTO 10 % (4-13); Mean Corpuscular HGB Conc 34.2 g/dL (31.5-36.5); Mean Corpuscular Volume 88 fL (80-100); Mean Platelet Volume 9.3 fL (9.1-12.4); NEUTROPHILS PERCENT AUTO 81 % (41-73); Platelet Count 298 K/mm3 (150-400); RDW Standard Deviation 41.5 fL (35.1-46.3); White Blood Cell Count 6.57 K/mm3 (4.00-11.30)
[2024-02-24 10:29] LABS: International Normalized Ratio 0.97; Prothrombin Time Results 10.2 Sec (9.7-11.5)
[2024-02-24 10:35] LABS: Albumin, Blood 2.7 g/dL (3.4-5.0); Bilirubin, Total 0.5 mg/dL (0.1-1.0); Bun/Creatinine Ratio 51.9 (12.0-20.0); Calcium, Blood 8.2 mg/dL (8.5-10.1); Creatinine, Blood 0.69 mg/dL (0.40-1.00); Globulin, Blood 2.8 g/dL (2.2-4.0); Magnesium, Blood 1.8 mg/dL (1.6-2.4); Potassium, Blood 4.2 mmol/L (3.5-5.5); Total Protein, Blood 5.5 g/dL (6.4-8.2)
[2024-02-24] MEDS ORDERED: Morphine Sulfate 4 MG/1 ML Injection ONE (10:35)
--- NOTE | 2024-02-24 12:14 | NUR ---
1100-pt transferred to room on on bed, drowsy answers to verbal stimuli, speaking, reports pain at "over 10". incision sites x 3 c/d/i, capillary refill in operative limb <2 sec, pink/warm/dry skin. post-op VS COMMENCED, ALLOWED BY PT WITH COMPLAINT. PT REFUSES INSULIN BUT ALLOWS CBG TAKEN BY NURSING STAFF. PT APPEARS CONFUSED ABOUT MANY PROCESSES, EDUCATED ON MEDICATIONS (TXA AND ANALGESICS PER MAR) SEVERAL TIMES BY THIS RN. PT ALLOWS ANALGESIA AND TXA AFTER SIGNIFICANT DISCUSSION. PT COMPLAINS OF THIS HOSPITAL AND THE TREATMENT SHE RECEIVES HERE. PT BERATES THIS RN FOR "ATTITUDE AND DISRESPECT" FOLLOWING EDUCATION PROVIDED IN KIND/RESPECTFUL/PROFESSIONAL MANNER. THIS RN WILL CONTINUE TO ATTEMPT TO PROVIDE RECOMMENDED/ORDERED CARE AND EDUCATION. 1200-VS STABLE, PT APPEARS TO BE SLEEPING WITH SNORING. LUNCH TRAY PROVIDED.
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
[2024-02-24] MEDS ORDERED: NS 250 ML IV PRN (20:00)
[2024-02-24] MEDS ORDERED: OLANZapine 5 MG Tab PO SCH (21:00)
[2024-02-25 00:13] VITALS: BP 135/46
--- NOTE | 2024-02-25 03:59 | NUR ---
SHIFT SUMMARY POD 1 GAMMA NAIL PT HAS BEEN SLEEPING T/O SHIFT. MEDICATED PER EMAR. COOPERATIVE AND PLEASANT WITH STAFF. DRESSING REMAINS CDI. PT REPORTS MINIMAL PAIN. HELPS WITH REPOSITIONING WELL. FERNANDES PATENT AND DRAINING. PLAN IS FOR PATIENT TO WORK WITH THERAPY IN THE MORNING WITH WEIGHT BEARING TOLERATED ORDERS.
[2024-02-25 04:11] VITALS: BP 124/57
[2024-02-25 07:33] VITALS: BP 141/56
[2024-02-25] MEDS ORDERED: Alogliptin Benzoate 25 MG TAB PO SCH (09:00)
[2024-02-25 14:31] VITALS: BP 142/54
--- NOTE | 2024-02-25 16:51 | NUR ---
CBG - 152 (MACHINE NOT CROSSING OVER INTO [employer])
--- NOTE | 2024-02-25 18:32 | NUR ---
SHIFT SUMMARY POD 1 R HIP GAMMA NAILING. NO ACUTE CHANGES TODAY. VSS. TOLERATING ORALS, PT REFUSING INSULIN. PT REMOVED OWN IV TODAY. PHYSCIAL THERAPY WORKED c PT TODAY, PT MINIMALLY COMPLIANT c AMBULATION. PT STATES "MY HIP ISN'T READY TO MOVE YET, I NEED TO HEAL 100% BEFORE I CAN BE MOVED AROUND SO MUCH." PT MEDICATED FOR PAIN PER EMAR, PT REPORTS MODERATE RELIEF FROM PAIN. FERNANDES DRAINING YELLOW URINE TO GRAVITY. BULKY GAUZE DRESSING x3 C/D/I. PT EDUCATED ON NEED FOR DIABETIC MANAGEMENT & EARLY MOBILIZATION FOR AMBULATION. CALL LIGHT IN REACH, BED IN LOWEST POSITION, WILL REPORT TO HARIS RN.
[2024-02-25 19:51] VITALS: BP 145/54
--- NOTE | 2024-02-25 21:38 | NUR ---
CBG AT 2135 CBG 156.
[2024-02-26 04:50] VITALS: BP 130/80
--- NOTE | 2024-02-26 05:27 | NUR ---
SHIFT SUMMARY POD 2-R HIP GAMMA NAILING. REPORTS 10/10 PAIN, MEDICATED 2x c HYDROCODONE & 1x c TYLENOL. PT ABLE TO REST SOUNDLY. AOX3-FORGETFUL, NONSENSICAL TANGETABLE RESPONSES @TIMES. ANXIOUS & REPORTS SHE KNOWS WHAT'S BEST FOR HER COMPARED TO THE DR'S OR STAFF. REPORTS NUMBNESS BILAT FEET, ABLE TO WIGGLE TOES, CAP REFILL <3 SEC, WARM. R HIP c 3 PRESSURE TAPE SITES, NO DRAINAGE NOTED & DRESSINGS INTACT. FERNANDES PATENT, DRAINING CLEAR YELLOW URINE. PT TOOK HS ZYPREXA & ABLE TO SLEEP/REST WELL. CALL LIGHT & BED ALARM IN PLACE.
--- NOTE | 2024-02-26 11:29 | NUR ---
VISITING WITH SPIRITUAL CARE.
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
--- NOTE | 2024-02-26 17:52 | NUR ---
SUMMARY PT REFUSED MOST CARE TODAY, HAS REFUSED TO GET OOB WITH STAFF THIS AM, REFUSED TO BE REPOSITIONED OR TO BE ASSISTED W/ ADL'S, PT AGREED TO BE CLEANED UP AND HAVE AN ATTENDS CHANGE AFTER A BM, AND OOB TO CHAIR W/ PT FOR A SHORT TIME, REFUSED TO HAVE BLOOD SUGAR CHECKED, SLEPT ON AND OFF DURING THE DAY, DR. BUSTAMANTE EVALUATED PT TODAY, NO ACUTE CHANGES THIS SHIFT.
[2024-02-26 20:23] VITALS: BP 129/57
--- NOTE | 2024-02-27 04:58 | NUR ---
SHIFT SUMMARY PT IS A/O X2-3, POD3 FOR R GAMMA NAIL. PT WAS PLEASANT W/ STAFF AT START OF SHIFT, HOWEVER GOT MORE FRUSTRATED THROUGHOUT THE NIGHT. STATING THAT SHE KNOWS WHAT IS BEST FOR HER, SHE DOES NOT WISH TO WORK WITH PHYSICAL THERAPY ANY LONGER AND "DOES NOT WANT STAFF TO CHECK ON HER ANY MORE". SHE THEN REQUESTED PAIN MEDICINE AND WAS MEDICATED PER EMAR, HOWEVER PT DID REFUSE HER SCHEDULED HS MEDS INCLUDING ZYPREXA. SHE HAS BEEN REPOSITIONED THROUGHOUT THE NIGHT SHE HAS ALLOWED. FERNANDES IN PLACE AND DRAINING APPOPRIATELY, STAT LOCK IN PLACE. DRESSINGS ON R HIP REMAIN C/D/I. PT ABLE TO WIGGLE TOES BILATERALLY. VSS. PT CURRENTLY SLEEPING PEACEFULLY W/ CALL LIGHT IN REACH, BED ALARM ON FOR SAFETY.
[2024-02-27 06:22] VITALS: BP 117/51
[2024-02-27 06:59] VITALS: BP 101/51
[2024-02-27] MEDS ORDERED: Rivaroxaban 10 MG Tab PO SCH (12:00)
--- NOTE | 2024-02-27 12:50 | NUR ---
PT ATTEMPTED TO ASSIST TO THE BSC PER PT REQUEST, VERBAL CUEING WITH EVERY STEP, PT DOESN'T SEEM TO REMEMBER STEPS FROM PT SESSION THIS AM, PT IS GETTING AGITATED AT STAFF FOR ASSISTING AND GIVING HER DIRECTIONS ON HOW TO MOVE SAFELY WITH ASSIST, 2 PERSON IN ROOM TO ASSIST PT, STATES "I WANT TO DO IT MYSELF" BUT WAS UNSUCCESFUL AND GETS ANGRY WHEN ASSISTANCE IS OFFERED, PT ASSISTED BACK TO BED, PT HAD A BM IN HER ATTENDS, ASSISTED TO CHANGE ATTENDS AND BECAME ANGRY, CALLING STAFF "FUCKING BITCHES!" REPOSITIONED IN BED, CALL LIGHT WITHIN REACH.
--- NOTE | 2024-02-27 17:04 | NUR ---
SUMMARY PT WORKED WITH PT THIS AM AND DID BETTER PER THERAPIST, NORCO GIVEN FOR PAIN CONTROL, PT HAD DIFFICULTY ATTEMPTING TO GET UP TO BSC TODAY, DOESN'T SEEM TO UNDERSTAND SAFETY PRECAUTIONS, DR. CHIN SAW PT TODAY, GUARDIANSHIP STATUS PENDING, PT CONT. TO REFUSE TO BE REPOSITIONED OR TURNED, NO OTHER CHANGES THIS SHIFT.
[2024-02-27 19:10] VITALS: BP 115/55
--- NOTE | 2024-02-28 02:10 | NUR ---
BREIF CHANGE PT CHECKED ON BY TRADEMARK PARALEGAL TO ENSURE PT DID NOT NEED TO USE THE BEDPAN OR COMMODE. PT WAS FOUND SOAKED ALL THE WAY TO THE SHEETS AND NEEDED A BED CHANGE. PT FIRST DENIED NEEDING CHANGED TO THE TRADEMARK PARALEGAL. THIS RN WENT INTO ROOM AND TALKED TO PT ABOUT NEEDING TO BE CHANGED FOR RISK OF BEDSORES. PT AGREED TO BEING CHANGED AFTER BEING MEDICATED PER EMAR. THIS RN AND TRADEMARK PARALEGAL WENT INTO ROOM AND STARTED CHANGING PT, PT BECAME HYSTERICAL, CRYING AND YELLING. PT STATED "ALL YOU GUYS WANT TO DO IS HURT ME!" ATTEMPTED TO REASURE PT THAT WE DO NOT WANT TO HURT HER AND JUST WANT TO HELP HER. PT STILL YELLING AND BEING NON COMPLIANT WITH CARE. PT SHEETS CHANGED. PT REMAINS ON R SIDE WITH BRIEF UNDER HER BUT NOT STRAPPED BECAUSE PT DOES NOT WANT TO ROLL BACK ONTO BACK. PT STATES SHE DOESNT WANT TO BE BOTHERED. PT ALSO IS SAYING THAT "I AM LEAVING TODAY". CALL LIGHT WITHIN REACH
[2024-02-28 04:09] VITALS: BP 138/58
--- NOTE | 2024-02-28 05:43 | NUR ---
SHIFT SUMMARY POD 4 R GAMMA NAILING PT SLEPT MOST OF THE NIGHT. MEDICATED PER EMAR. PT CALLED AND WANTED TO GET UP TO THE BSC. PT IS A 2 PERS MAX ASST. PT NEEDDS CONSTANT NEED FOR REDIRECTION, THEN JUST DOES IT HER OWN WAY. PT ABLE TO GET UP WITH MAX ASST AND USE THE BSC. PT HAS NEW ATTENDS PUT ON. INSTUCTED TO USE CALL LIGHT WHEN NEEDING TO VOID. DRESSING TO THE R HIP C/D/I. TOLERATING PO INTAKE. VSS. NO OTHER CONCERNS AT THIS TIME, CALL LIGHT WITHIN REACH
[2024-02-28 07:22] VITALS: BP 145/61
[2024-02-28] MEDS ORDERED: Cholecalciferol 1000 Unit Tablet (=25MCG) PO SCH (09:00)
--- NOTE | 2024-02-28 12:04 | NUR ---
PT REFUSES INSULIN FOR CGB 215, EDUCATED PT ON INSULIN ORDERS AND USAGE. PT CONTINUES TO REFUSE AND REPORTS SHE DOES NOT NEED INSULIN SINCE SHE TAKES METFORMIN AND GLIPIZIDE. AGAIN EDUCATED THAT ORAL MEDS ARE NOT COMPLETELY CONTROLLING BG LEVELS, PT AGAIN REFUSES.
[2024-02-28 16:10] VITALS: BP 150/65
--- NOTE | 2024-02-28 18:04 | NUR ---
SHIFT SUMMARY SURGICAL FLOOR TRANSFER @0900. POD4 R HIP FX, GAUZE AND FOAM TAPE C/D/I. PT/OT INVOLVED AND PT CONTINUES TO REFUSE THERAPIES OR ACTIVITIES THAT INVOLVE MOVING. PT BECOMES VERBALLY THREATENING AND REPORTS GOING TO CONTACT PURCHASING ADMINISTRATOR. PT CONTINUES TO REFUSE S/S INSULIN AND REPORTS METFORMIN AND GLIPIZIDE IS ENOUGH. CONTINUED EDUCATION PROVIDED REGARDING ELEVATED CBG'S BUT PT UNINTERESTED. ADULT BRIEF IN PLACE FOR INCONT R/T PT REFUSING TO GET TO COMMODE OR SIT ON BEDPAN. PT HAS HAD NORCO 2X THIS SHIFT FOR PAIN OF 10+ PER PT REPORT. PT REPORTS WANTING TO DISCHARGE TO [facility] IN [place] AND HAS ATTEMPTED TO CALL SEVERAL TIMES TODAY. CALL LIGHT W/IN REACH, NO ACUTE CHANGES THIS SHIFT.
[2024-02-28 20:01] VITALS: BP 149/57
[2024-02-29 03:47] VITALS: BP 156/59
--- NOTE | 2024-02-29 04:32 | NUR ---
SHIFT SUMMARY AVE WAS ALERT AND ORIENTED X 3 ON ASSESSMENT, PT PAINFUL TO POST OP R HIP, BUT ABLE TO USE BSC WITH 2P MAX ASSIST, STAND/ PIV ONLY. PT WAS CONTINENT TONIGHT, NO ACUTE EVENTS, NO CHANGES TO CONDITION, PT DRESSING TO R HIP C/D/I. PT RESTING IN BED AT LOW POSITION WITH CALL LIGHT IN REACH.
[2024-02-29 14:33] VITALS: BP 173/71
--- NOTE | 2024-02-29 18:44 | NUR ---
PATIENT A/OX3, [place] TODAY [place] [facility] [place] 2 MAX ASSIST PIVOT TRANSFER. VSS, ON RA. PATIENT COOPERATIVE TODAY, BUT DOES HAVE SOME PARANOID DELUSIONS. NORCO GIVEN X2 TODAY TO CONTROL PAIN TO R HIP. DRESSING TO R HIP REMAINS C/D/I. PATIENT REFUSING INSULIN. PATIENT UP IN CHAIR FOR A FEW HOURS TODAY, TOLERATED WELL. TOLERATING ADA DIET. AWAITING DC PLAN.
[2024-02-29 20:22] VITALS: BP 155/65
[2024-03-01 03:09] VITALS: BP 157/71
--- NOTE | 2024-03-01 04:40 | NUR ---
SHIFT SUMMARY PATIENT IS ALERT BUT NOT ORIENTED. PATIENT HAS HAD NO ACUTE EVENTS THIS SHIFT. PATIENT HAS BEEN PLEASENT AND COOPERATIVE WITH CARE THIS SHIFT. PATIENT REFUSED TO BE CHANGED EARLIER IN SHIFT. PATIENT MOVES SELF IN BED. PATIENT HAS NO COMPLAINTS OF PAIN, NAUSEA, SOB OR VOMITTING THIS SHIFT. BED IN LOCKED AND LOWEST POSITION. CALL LIGHT IN PLACE. WILL MONITOR UNTIL SHIFT CHANGE.
[2024-03-01 07:42] VITALS: BP 153/62
[2024-03-01 15:27] VITALS: BP 156/62
[2024-03-01 19:29] VITALS: BP 153/74
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
[2024-03-02 02:59] VITALS: BP 121/56
[2024-03-02 08:14] VITALS: BP 127/58
--- NOTE | 2024-03-02 13:46 | NUR ---
REFUSAL OF CARE PT PREVIOUSLY AGREEABLE TO GET OOB FOR LUNCH SO THAT EGG CRATE FOAM COULD BE PLACED TO HER BED FOR ADDED CUSHION. WHEN LUNCH ARRIVED, PT BECAME AGRIVATED WITH STAFF, STATING SHE WILL NOT BE GETTING OOB AND STATES THERE IS NO PRESSURE WOUND TO HER BOTTOM WHEN EDUCATED. PT PREVIOUSLY WAS TOLD ABOUT THIS WOUND AND STATES SHE BELIEVES IT SINCE HER BOTTOM HAS BEEN SORE. PT STILL C/O SORE, BUT REFUSES TO ACCEPT THAT SHE HAS ONE NOW. PT REFUSED FOR PHOTOS TO BE TAKEN OF HER WOUND. FOAM DRESSING PLACED THIS AM TO SACRUM WHEN PT WAS COMPLIANT. PT NOW CONFUSED AND ARGUMENTATIVE AND REFUSING CARE. PT DID ALLOW FOR HIPS TO BE FLOATED BY AIDES.
--- NOTE | 2024-03-02 13:52 | NUR ---
PT AGITATED WHEN EXPRESSING CONCERN OF NOT MOBILIZING IN BED. PT ARGUED "HOW CAN I GET A PRESSURE ULCER FROM LAYING IN BED, THATS NOT POSSIBLE." PT EDUCATED ON HOW PRESSURE ULCERS BEGIN. PT DENIED. EXPRESSED TO PATIENT THAT ITS BEST TO GET UP INTO THE CHAIR. PT BECAME AGRESSIVE AND STATED,"NOBODY CAN FORCE ME TO DO ANYTHING, I MAKE MY OWN DECISIONS." WALKED OUT OF ROOM AND CALLED SIMONE ALCARAZ. SIMONE AWARE OF PATIENTS BEHAVIOR. PT CONVINCED ON PLACING PILLOWS UNDERNEATH BL BUTTOX. CALL LIGHT WITHIN REACH.
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
[2024-03-02 19:28] VITALS: BP 155/68
[2024-03-03 03:17] VITALS: BP 141/68
--- NOTE | 2024-03-03 06:25 | NUR ---
pt slept most of night. norco given for pain 2x. see eMAR. up with kayy steady once, bed linins changed for incont. episode. pt repositioned back to bed, pt mostly cooperative tonight. needs help focusing at times as pt tends to fixate on things not related to situation when doing cares.
[2024-03-03] MEDS ORDERED: Polyethylene Glycol 3350 17 gm PO PRN (10:15)
[2024-03-03 16:27] VITALS: BP 109/71
--- NOTE | 2024-03-03 17:04 | NUR ---
SHIFT SUMMARY PT EASILY AGITATED AND VERY AGUMENTATIVE AT TIMES WITH SOME EDUCATION OR INSTRUCTION. PT AGREEABLE TO GETTING UP AND OB FOR TOILETING T/O SHIFT. USING THE BSC. PT AGREEABLE TO GETTING UP INTO CHAIR ONCE THIS SHIFT. PLAN TO MOVE PT TO 352 NEXT SHIFT FOR A MORE ACCESSIBLE SHOWER/BATHROOM SINCE SHE IS STILL NEEDING THE JI SIT TO STAND LIFT FROR TRANSFERS. MEDICATED FOR PAIN TWICE THIS SHIFT. GIVEN MIRALAX ONCE TODAY TO HELP WITH A BM. PT PASSING GAS WELL. NO OTHER ACUTE CHANGES IN ASSESSMENT AT THIS TIME. VS REVIEWED. CALL LIGHT IN REACH. DENIES OTHER NEEDS AT THIS TIME.
[2024-03-03 19:48] VITALS: BP 129/60
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
--- NOTE | 2024-03-04 03:15 | NUR ---
PATIENT APPEARS AGITATED,PATIENT YELLING AT STAFF SOON STAFF ENTERED PATIENTS ROOM. PATIENT WAS ANGRY THAT SHE HAD AN INCONTINENCE EPISODE IN BED; THIS RN LET PATIENT KNOW THAT I WAS GOING TO GRAB SOME NEW BEDDING AND INCONTINENCE SUPPLIES. PATIENT BECAME VERY ANGRY AND YELLING AT STAFF, NOT MAKING ANY SENSE. TRIED TO DEESCALATE PATIENT WITH OUT SUCCESS. PATIENT LEFT IN A SAFE POSITION WITH CALL LIGHT IN REACH. RETURNED TO PATIENTS ROOM APPROX. 5 MINUTES LATER, PATIENT STILL APPEARING AGITATED BUT ALLOWED FOR THIS RN TO CHANGE HER. PATIENT REPOSITIONED, ASSESSED FOR NEEDS; PATIENT DENIES ANY NEEDS AT THIS TIME.
[2024-03-04 03:50] VITALS: BP 150/70
--- NOTE | 2024-03-04 04:56 | NUR ---
SHIFT SUMMARY. PATIENT IS OF IRRITABLE MOOD. PATIENT IS CONCRETE IN HER THOUGHTS. PATIENT IS ALERT TO SELF AND PLACE. PATIENT WILL PARTICIPATE IN CARE, BUT WILL YELL OUT AT STAFF DURING CARE. PATIENT IS NON-RECEPTIVE TO EDUCATION RELATED TO MEDICATION, CARE, OR CONDITION. PATIENT WANTS TASKS COMPLETED RIGHT WHEN SHE HITS HER CALL LIGHT; THIS RN ATTEMPTED TO EXPLAIN TO PATIENT THAT WE ANSWER THE CALL LIGHTS SOON WE CAN AND IF WE ARE IN ANOTHER PATIENTS ROOM OR ASSISTING ANOTHER PATIENT IT MIGHT BE A FEW MINUTES UNTIL WE ARE ABLE TO MAKE IT TO HER ROOM; PATIENT RESPONDED "I DONT CARE ABOUT OTHER PEOPLE". IT PROVES DIFFICULT TO REORIENT PATIENT SHE IS CONCRETE IN HER WAYS. BED IS LOCKED IN THE LOWEST POSITION WITH CALL LIGHT IN REACH. CARE IS ONGOING.
[2024-03-04 07:59] VITALS: BP 134/71
[2024-03-04] MEDS ORDERED: QUEtiapine Fumarate 25 MG Tab PO PRN (11:05)
[2024-03-04] MEDS ORDERED: OLANZapine 10 MG Vial IM PRN (11:05)
[2024-03-04 17:00] VITALS: BP 159/65
--- NOTE | 2024-03-04 17:17 | NUR ---
NO ACUTE CHANGES. PT IS AOX3 AND HAS SOME CONFUSION. PT CONTINUES TO BE ARGUMENTIVE AND THEN OTHER TIMES SHE COOPERATES WELL. PT REFUSES SOME MEDS AND THEN ACCEPTS OTHERS. PT DID ACCEPT A SHOWER AND WAS A LIFT WITH A SIT TO STAND. PT IS INCONTENT AND WILL NOT USE CALL LIGHT TO CALL. PT TREATED FOR PAIN PER EMAR. WILL CONTINUE TO MONITOR.
[2024-03-04 20:00] VITALS: BP 138/56
[2024-03-04] MEDS ORDERED: QUEtiapine Fumarate 50 MG TAB PO SCH (21:00)
--- NOTE | 2024-03-04 21:02 | NUR ---
PATIENT REFUSED 2100 MEDS. THE RN ATTEMPTED TO EDUCATE PATIENT ON SEROquel IT IS A NEW SCHEDULED 2100 MEDICATION. PATIENT STATES "I DONT HAVE ANXIETY, DEPRESSION, AND I GET ANGRY JUST LIKE EVERYONE ELSE AND I YELL BUT THEN I CALM MYSELF DOWN. THE DOCOTR IN [place] SAYS THERES NOTHING WRONG WITH ME SO I DONT TAKE ANYTHING. OH, I TAKE ASPIRIN, I BUY A BIG BOTTLE OF ASPIRIN AND TAKE THAT BECAUSE I HAVE SINUSES".
[2024-03-05 04:01] VITALS: BP 154/78
--- NOTE | 2024-03-05 05:26 | NUR ---
SHIFT SUMMARY. NO ACUTE CHANGES. PATIENT IS A 2P MAX ASSIST WITH SIT TO STAND LIFT. PATIENT CALLS TO US THE BSC. PATIENT C/O PAIN; PAIN ASSESSED AND MEDICATED PER EMAR. PATIENT IS CONCRETE IN HER THOUGHTS. PATIENT RESTING WITH RESPIRATIONS EQUAL AND UNLABORED. BED IS LOCKED IN THE LOWEST POSITION WTIH CALL LIGHT IN REACH. NO S/S OF DISTRESS NOTED AT THIS TIME. CARE IS ONGOIN.
[2024-03-05 07:15] VITALS: BP 140/78
[2024-03-05] MEDS ORDERED: AmLODIPine Besylate 5 MG Tab PO SCH (09:00)
--- NOTE | 2024-03-05 15:58 | NUR ---
Patient is very talkative today. She shares abouot the challenges of not having many visitors, about the slowness of recovery and the excellence and kindness in which some staff have treated her. She then talks at length about her fragmented memories of her kids. I don't know if it is her current mental state or the chaoes of her life during those yrs but her memories are a bit shallow except for when her second sons father and she spent some time with him. She was tearful at times as she talked about her sons. There is much history there both good and bad and some long (over 15 yrs) when they have not seen each other. I provide therapeutic listening and prayer. Patient voiced much appreciation for the visit
--- NOTE | 2024-03-05 17:32 | NUR ---
SHIFT SUMMARY PT REFUSED MOST MEDICATIONS THIS AM DESPITE EDUCATION PROVIDED. PT CONT TO REFUSE INSULIN. PT STATED, "IT KILLS PEOPLE." PT VERBALIZED REFUSAL TO PARTICIPATE IN PHYSICAL THERAPY IF SHE WAS TO WORK W/ PHYSICAL THERAPY TODAY. PT STATED, "I NEED TO HEAL AND THAT IS NOT HELPING ME HEAL. I AM NOT READY." THIS NURSE EDUCATED PT, BUT PT REFUSED TEACHING AND WAS NON RECEPTIVE. PT'S REDDENED COCCYX IS NOW A OPEN PRESSURE ULCER. THIS NURSE TOOK PICTURE, CONSENT SIGNED, BOTH IN CHART. CALL LIGHT WITHIN REACH AND PT ABLE TO MAKE NEEDS KNOWN.
[2024-03-05 19:34] VITALS: BP 158/58
[2024-03-06 03:03] VITALS: BP 148/61
--- NOTE | 2024-03-06 06:00 | NUR ---
SHIFT SUMMARY - PT UP WITH SIT TO STAND X1 LAST NOC - PT REPORTED HIGH LEVEL OF PAIN TO HER RIGHT HIP X1, AND RIGHT KNEE X1 - MEDICATED PER EMAR. DRESSING STILL IN PLACE TO RIGHT HIP - CD&I. PT HAS BEEN A&OX3, AND HAS BEEN APPROPRIATE IN COMMUNICATING HER NEEDS TO STAFF. WILL CONTINUE TO MONITOR UNTIL AM SHIFT CHANGE. CALL LIGHT WITHIN REACH. BED IN LOW POSITION. BED ALARM ON FOR PT SAFETY.
[2024-03-06 07:23] VITALS: BP 133/57
[2024-03-06 15:23] VITALS: BP 124/68
--- NOTE | 2024-03-06 18:15 | NUR ---
PATIENT A/OX3, CONFUSED ABOUT SITUTATION. ANXIOUS AND PARANOID AT TIMES, CALMED WITH CONVERSATION. WORKED WITH PT TODAY AND WAS ABLE TO TRANSFER TO CHAIR. UP IN CHAIR FOR SEVERAL HOURS AND TOLERATED WELL. NORCO GIVEN X2 TO TREAT R HIP PAIN. DRESSING TO R HIP REMAINS C/D/I. PATIENT REFUSING SEVERAL OF HER MEDICATIONS, INCLUDING HER BLOOD THINNER. DR BURRELL NOTIFIED AND ASPIRIN ORDERED WHICH PATIENT STATES SHE IS WILLING TO TAKE. AWAITING GUARDIANSHIP AND PLACEMENT.
[2024-03-06 19:41] VITALS: BP 149/62
--- NOTE | 2024-03-07 06:51 | NUR ---
END OF SHIFT SUMMARY PT A&OX4, POOR JUDGEMENT EXHIBITED. COOPERATIVE WITH MOST CARE BUT REFUSED ALL MEDS EXCEPT FOR PAIN MEDICINE. UP TO BSC WITH 2XA/GB/FWW, PT SHUFFLING RLE. DRESSING TO RIGHT HIP C/D/I.
[2024-03-07 07:39] VITALS: BP 142/51
[2024-03-07] MEDS ORDERED: Atorvastatin 40 MG Tab PO SCH (09:00)
[2024-03-07] MEDS ORDERED: Aspirin 81 MG Chew PO SCH (09:00)
[2024-03-07 15:31] VITALS: BP 158/75
--- NOTE | 2024-03-07 17:43 | NUR ---
PT COOPERATIVE WITHOUT COMPLAINTS, ORIENTED. WORKED WITH PT AND OT TODAY. UP IN CHAIR FOR LUNCH. WOUND DRESSING CHANGE RIGHT HIP. PT CONTINENT WITH EPISODES OF INCONTINENCE. USED BEDPAN, COMMODE, AND UTILIZED ATTENDS THROUGHOUT DAY. PAIN WELL CONTROLLED WITH NORCO. HANDLED DIET WELL. NO BOWEL MOVEMENT.
--- NOTE | 2024-03-07 17:55 | NUR ---
REVIEWED ASSESSMENT AND NOTES CHARTED BY THERESA, STUDENT NURSE AND AGREE WITH HIS DOCUMENTAION FOR THIS PATIENT.
[2024-03-07 19:45] VITALS: BP 145/72
--- NOTE | 2024-03-08 06:11 | NUR ---
SHIFT SUMMARY PATIENT IS ALERT AND ORIENTED X3. PATIENT HAS HAD NO ACUTE EVENTS THIS SHIFT. VITAL SIGNS REVIEWED. PATIENT HAS BEEN PLEASENT AND COOPERATIVE FOR ME THIS SHIFT. PATIENT HAS HAD NO COMPLAINTS OF PAIN, NAUSEA, SOB OR VOMITTING. PUREWICK IN PLACE. BED IN LOCKED AND LOWEST POSITION. CALL LIGHT IN PLACE. WILL MONITOR UNTIL SHIFT CHANGE.
[2024-03-08 06:24] VITALS: BP 176/79
[2024-03-08 07:29] VITALS: BP 143/62
[2024-03-08 15:59] VITALS: BP 144/69
--- NOTE | 2024-03-08 18:59 | NUR ---
SHIFT SUMMARY: PT A&O X3. OCCASIONALLY FORGETFUL. PT C/O 8/10 PAIN IN R. HIP AND R. LEG THIS AM ALONG WITH SEVERE ANXIETY. MEDICATED PER EMAR WITH NORCO AND SEROQUEL. PT RECEIVED GUARDIANSHIP PAPERS THIS SHIFT. PT REFUSED BOTH PT AND OT THIS SHIFT. DRESSING ON R. HIP C/D/I. ACCU CHECKS CHANGED FROM AC/HS TO TWICE DAILY. PT REFUSED MOST MORNING MEDICATIONS. CALL LIGHT IN REACH. BED IN LOWEST POSITION.
[2024-03-08 19:52] VITALS: BP 145/55
--- NOTE | 2024-03-09 04:27 | NUR ---
SHIFT SUMMARY PATIENT IS ALERT BUT NOT ORIENTED. PATIENT HAS HAD NO ACUTE EVENTS THIS SHIFT. VITAL SIGNS REVIEWED. PATIENT HAS COMPLAINED OF PAIN, MEDICATED PER EMAR. PATIENT HAS NOT COMPLAINED OF SOB, NAUSEA OR VOMITTING. PATIENT HAS PUREWICK IN PLACE. GUARDIANSHIP IN PLACE. BED IN LOCKED AND LOWEST POSITION. CALL LIGHT IN PLACE. WILL MONITOR UNTIL SHIFT CHANGE.
[2024-03-09 05:37] VITALS: BP 138/45
[2024-03-09 08:22] VITALS: BP 148/62
--- NOTE | 2024-03-09 11:15 | NUR ---
PATIENT C/O RIGHT LEG PAIN 08/29. MEDICATED PER EMAR. THE PATIENT'S LEGS REVEAL SCRATCHES AND SCABS, NO ERYTHEMA ON CALVES. PATIENT REFUSED TO GET OOB TO THE CHAIR TWICE SO FAR THIS SHIFT. PATIENT STATES "I WILL NOT LISTEN TO ANYONE BESIDES MYSELF". PURE WICK IN PLACE BECAUSE THE PATIENT IS REFUSING TO GET OOB TO THE BSC OR BATHROOM. 300 ML URINE EMPTIED FROM PUREWICK AT 11:00. PT ENCOURGED TO TAKE PRESCRIBED MEDICATIONS, SHE REFUSED MOST OF THEM. PATIENT ENCOURGAED TO GET OOB, SHE HAS REFUSED. PATIENT ENCOURAGED TO WEAR SCD'S IF SHE REFUSES TO TAKE CHEMICAL PROPHYLAXIS, SHE REFUSED. WILL WAIT FOR PAIN MEDICATION TO TAKE EFFECT AND ENCOURAGE THE PATIENT TO GET OOB.
[2024-03-09 15:29] VITALS: BP 161/71
--- NOTE | 2024-03-09 17:23 | NUR ---
PATIENT REFUSED TO GET OOB TO THE CHAIR OR BSC. PATIENT PULLED PILLOW OUT FROM UNDER HER LEFT HIP.
--- NOTE | 2024-03-09 18:15 | NUR ---
PATIENT IS ALERT AND ORIENTED. SHE OVERESTIMATES HER OWN ABILITY. SHE REFUSES CARE. PATIENT HAS NOT BEEN OOB TODAY. SHE REFUSES TO GET OOB TO USE THE RESTROOM. A NEW MEPILEX WAS PLACED ON HER COCCYX TODAY. PURE WICK IN PLACE. ATTENDS CHANGED PRN. PATIENT REFUSED LUNCH BUT ATE BREAKFAST AND DINNER. WILL CONTINUE TO MONITOR
[2024-03-09 19:47] VITALS: BP 186/66
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
[2024-03-10 04:41] VITALS: BP 138/81
[2024-03-10 07:39] VITALS: BP 139/60
[2024-03-10 15:00] VITALS: BP 143/57
--- NOTE | 2024-03-10 17:20 | NUR ---
DAY SHIFT SUMMARY: A&Ox3 PERSON, PLACE AND TIME, BUT NOT CURRENT SITUATION. GRANDIOSE DELUSIONS ABOUT KNOWING "VETERINARY MEDICAL OFFICER OF THE HOSPITAL, ALTA [facility]AMS". USED CALL LIGHT SEVERAL TIMES, BUT WHEN ANSWERED, DENIED THAT SHE'D PRESSED IT. VERY NEGATIVE AND COMPLAINING ABOUT ANYTHING AND EVERYTHING SHE CAN: HAD FOOD SERVICES ON THE PHONE x40 MINUTES BECAUSE SHE WANTED PIZZA OR SPAGHETTI AND NOT LASAGNA. ARGUED WITH NURSE ABOUT MEDICATIONS, EVEN ONCE NURSE AGREED TO NOT ADMINISTER THEM. MEDICATED x1 PAIN. PUREWICK IN PLACE. REQUESTED PRN MIRALAX FOR C/O CONSTIPATION. REFUSED ALL INSULIN AND MOST OF MORNING MEDICATIONS. REPORT TO ONCOMING RN.
[2024-03-10 19:33] VITALS: BP 133/50
--- NOTE | 2024-03-10 20:11 | NUR ---
THIS NURSE ANSWERED PT LIGHT. PT COMPLAINS THEY ARE COLD AND WANT THE DOOR CLOSED. THIS NURSE EDUCATED PT ON FALL RISK AND EXPLAINED THE DOOR CANNOT BE CLOSED COMPLETELY. PT REFUSED EDUCATION AND STATED "ALTA TOLD ME IT CAN BE CLOSED" AND THAT "ALTA" TOLD HER THE "BED THING" DID NOT HAVE TO BE ON EITHER. EDUCATED PT ON THE NEED FOT THESE FALL PRECAUTIONS. PT YELLED AT THIS RN AND SAID 'YOU ARE STUPID. YOU NEED TO GET A DIFFERENT JOB" THIS NURSE EXPLAINED THE NO TOLERANCE POLICY AND AFTER CHECKING FOR A SAFE ENVIRONMENT LEFT PT TO RETREIVE PT MEDICATIONS. PT ATTEMPTED AGAIN TO LEAVE BED, VALENTINE SCHILLING RN, JUAN QUINTANILLAA, AND JESSICA GAONA RN ASSISTED IN RETURNING PT TO BED. IM ZYPREXA ADMINISTERED PRN FOR AGITATION. PT STILL ATTEMPTED TO LEAVE BED ONCE STAFF WAS ROBERT. INFORMED AND NONVIOLENT RESTRAINTS APPLIED TO PT.
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
--- NOTE | 2024-03-11 04:17 | NUR ---
PT REFUSED HS CBG. PT REFUSED 2ND NOC VITALS.
--- NOTE | 2024-03-11 05:43 | NUR ---
SHIFT SUMMARY DIGESTER OPERATOR HELPER&OX3-4, OCCASIONALLY ANSWERS QUESTIONS APPROPRIATELY. PT HAS GRANDIOSE DELUSIONS AND IS RESISTANT TO PT CARE AND PT TEACHING. PT REFUSES MEDICATIONS. PT THREATENS STAFF AND IS COMBATIVE DURING PT CARE. PT PLACED IN AALIYAH RESTRAINT DUE TO UNSAFE BEHAVIORS AND ATTEMPTING OOB WITHOUT PRECAUTIONS/ASSISTANCE. VSS. NO COMPLAINTS OF CP OR SOB. PT COMPLAINS OF R LEF PAIN STATING THE MEÑO WERE PULLED OUT. INCISION ASSESSED AND MEÑO STILL IN PLACE. PT REFUSED PAIN MEDICATION OR NONPHARMACOLOGICAL INTERVENTIONS. NO ACUTE EVENT AT THIS TIME. FALL PRECAUTIONS IN PLACE PER POLICY. CALL LIGHT IN REACH.
--- NOTE | 2024-03-11 09:14 | NUR ---
pt laying in bed watching tv with gayle vest in place, she ok for assessment but is fixated on what po meds she will take, states I only take four pills, attempted to explain why that changed but is not receptive, she states she wants to go home, wants out of here, states all these lumps on my leg is where they twisted it last night, there are no lumps, states she did not sleep at all last night, was somewhat cooperative with care, but very limited, lungs are clear t/o, resp even and unlabored, no cough noted, hrr, murmur noted, trace edema noted to b/l le, ppp+1, radial pulses +2, cap refill <3 sec, btx4, states she's constipated, so did take stool softener, purwick in place, draining clear jc urine, skin has dressing to right hip, no s/s of infection no drainage noted, sina, states she can walk with a walker, lola, did allow this nurse to check her glucose this am, 205 but did not want insulin, call light in reach.
--- NOTE | 2024-03-11 10:15 | NUR ---
pt worked with PT, she is in chair now, states she is having pain, and would like a pain pill, this was given, has call light in reach.
--- NOTE | 2024-03-11 14:49 | NUR ---
MAD Consult received: This patient is known to me from previous visits where she seemed to have some difficulty carrying on conversations and one topic. Spoke with RN caring for her who said she seems to have some confusion at times, difficulty tracking, which worsens at night. Patient has had no anger issues during day shift. No appropriate for MAD Consult limit setting as she can't remember consistently per RN.
[2024-03-11 15:51] VITALS: BP 161/84
--- NOTE | 2024-03-11 18:11 | NUR ---
pt has been cooperative throughout this shift. she is delusional about certain things, she is impulsive and got to the bsc without calling, medicated her twice for pain, no further changes this shift. call light in reach.
[2024-03-11 19:59] VITALS: BP 118/66
--- NOTE | 2024-03-12 03:20 | NUR ---
BIOMETRICS EXPERIMENTALIST SUMMARY VSS. ABLE TO GET OOB TO COMMODE WITH LITTLE ASSISTANCE NEEDED TO VOID, ETC. AND TO GET BACK IN BED. HOB ELEVATED FOR COMFORT. REFUSED ALL MEDS, STATED SHE DIDNT NEED THEM. EASILY AGIATATED. QUICK TO BECOME DEFENSIVE. MULTIPLE ATTEMPTS TO REDIRECT PT. ABLE TO REPOSITION SELF IN BED WITHOUT ASSIST. CALL LIGHT IN REACH, RAILS UP X 2 AND BED IN LOW POSITION FOR SAFETY. RESTING QUIETLY WITH NO NOTED S/S ACUTE DISTRESS. WILL CONTINUE TOMONITOR. DRESSING OF RIGHT HIP INTACT. NO NOTED DRAINAGE.
[2024-03-12 06:03] VITALS: BP 138/59
[2024-03-12 07:37] VITALS: BP 145/85
[2024-03-12 15:34] VITALS: BP 117/73
--- NOTE | 2024-03-12 17:22 | NUR ---
SHIFT SUMMARY PT AOX2-3, CALLS AND MAKES HER NEEDS KNOWN. UP TO THE CHAIR FOR 2 HOURS TODAY, SHE TOLERATED IT WELL. SHE IS A 2 ASSIST TO THE BSC, BA ON FOR SAFETY. PT MEDICATED PER THE EMAR FOR AGITATION AND PAIN. MEPALEX APPLIED TO COCCYX AND R HIP INCISIONS. PT REFUSED MOST MEDICATIONS TODAY EXCEPT FOR THE MEDICATIONS SHE THOUGHT SHE TOOK AT HOME. WORKED WITH PT AND OT TODAY. CALL LIGHT WITHIN REACH, BED LOCKED AND IN THE LOWEST POSITION. WILL REPORT TO ONCOMING NURSE.
[2024-03-12 19:46] VITALS: BP 120/63
[2024-03-13 04:09] VITALS: BP 161/60
--- NOTE | 2024-03-13 04:15 | NUR ---
GUN STOCK MAKER SUMMARY BP ELEVATED, OTHERWISE VSS. REFUSING SOME MEDS WHEN OFFERED. EASILY AGITATED. 2 PERSON ASSIST TO BEDSIDE COMMODE, WHEN PT ALLOWS STAFF TO ASSIST. HOB ELEVATED FOR COMFORT. DRESSINGS OF HIP INTACT. HAS BEEN RESTING QUIETLY WITH FEW INTERRUPTIONS. CALL LIGHT IN REACH, RAILS UP X 2 AND BED IN LOW POSITOIN FOR SAFETY. ABLE TO REPOSITION SELF IN BED WITH OUT ASSIST. TV ON FOR DISTRACTION. WILL CONTINUE TO MONITOR
[2024-03-13 07:37] VITALS: BP 164/70
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
[2024-03-13 16:18] VITALS: BP 147/61
--- NOTE | 2024-03-13 18:31 | NUR ---
SHIFT SUMMARY PT AOX2, 1 ASSIST WITH THE FWW AND GB TO THE BSC AND CHAIR. PT UP TO THE CHAIR TODAY. SHE CALLS AND MAKES HER NEEDS KNOWN. MEDICATED FOR PAIN AND ANXIETY PER THE EMAR. PT IS ARGUMENTATIVE AND ONLY WANTS TO TAKE MEDICATIONS SHE INSISTS ARE CORRECT. MEPALEX TO THE COCCYX CHANGED THIS SHIFT. WHEN IN BED, PT REPOSITIONED T/O THE SHIFT. SHOWER AND LINEN CHANGE DONE TODAY. NO ACUTE COMPLAINTS AT THIS TIME. BED AND CHAIR ALARM ON. CALL LIGHT WITHIN REACH, BED LOCKED AND IN THE LOWEST POSITION. WILL REPORT TO ONCOMING NURSE.
[2024-03-13 19:39] VITALS: BP 141/60
[2024-03-14 03:05] VITALS: BP 129/61
--- NOTE | 2024-03-14 03:52 | NUR ---
ENERGY DIRECTOR: PT IS ALERT AND ORIENTED, VITALS ARE STABLE. PT SEEMED MORE COOPERATIVE THIS SHIFT. AGREED TO TAKE MOST OF HER EVENING MEDS. SLEPT WELL. WAS INCONTINENT ONES DURING SHIFT. PT IS CURRENTLY IN BED SLEEPING.
[2024-03-14 07:37] VITALS: BP 127/65
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
[2024-03-14 15:16] VITALS: BP 138/69
--- NOTE | 2024-03-14 17:40 | NUR ---
Pt remains A&Ox3, forgetful this shift. VSS. Pain meds given for right hip pain. Dressing to right hip CDI. Pt up with SBA, gen weakness noted. Educated on consistent carb diet, intake and importance of medications that she declines to take. Pain and safety maintained at this time. Will continue to monitor.
--- NOTE | 2024-03-14 17:48 | NUR ---
Pt remains alert to self this shift. Gen weakness noted, unsteady gait at times. 1:1 sitter at bedside. Defensive, paranoid, cooperative behavior fluctuates. Increased yelling and paranoia this afternoon. IM Zyprexa given. Nuc med unable to perform stress test today. Plan is for tomorrow.
[2024-03-14 20:08] VITALS: BP 164/64
[2024-03-15 04:49] VITALS: BP 162/57
--- NOTE | 2024-03-15 06:40 | NUR ---
Shift Summary Pt AOx3, pleasant and cooperative t/o shift. Only c/o of mild pain after using BSC. She is a 1 assist to BSC, calling appropriatly. Pt states she does not take seroquel any more, I held it per her request. She slept well t/o most of the night.
[2024-03-15 07:05] VITALS: BP 147/74
[2024-03-15 15:05] VITALS: BP 150/56
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
[2024-03-15 20:01] VITALS: BP 160/143
[2024-03-16 05:20] VITALS: BP 138/74
--- NOTE | 2024-03-16 06:42 | NUR ---
SHIFT SUMMARY: Pt is admitted for right hip FX and is a full code. Is alert and able to make most needs known. ADLs have been SBA -1p depending on activity. Denies pain or discomfort when asked. Dressing to right hip CDI.
[2024-03-16 07:46] VITALS: BP 176/79
[2024-03-16] MEDS ORDERED: MENTHOL TOP PRN (10:05)
[2024-03-16] MEDS ORDERED: METHYL SALICYLATE TOP PRN (10:05)
[2024-03-16] MEDS ORDERED: CAMPHOR TOP PRN (10:05)
[2024-03-16] MEDS ORDERED: Methyl Salicylate/Menth/Camph 57 GM TUBE TOP PRN (14:15)
[2024-03-16 16:56] VITALS: BP 170/67
--- NOTE | 2024-03-16 19:20 | NUR ---
SHIFT SUMMARY- PT ALERT AND ORIENTED TO SELF. SHE HAS HAD NO ACUTE CHANGE T/O THE DAY. PT STILL REFUSING TO TAKE MEDICATIONS ORDERED. CALLED DR BURRELL AND SPOKE TO HER ABOUT THE PT UNWILLINGNESS TO TAKE BP MEDS ORDERED. PT STATES SHE WILL NOT TAKE ANY BP MEDS OFFERED, SHE STATES SHE TAKES LOSARTAN. SPOKE TO DR BURRELL, HOME DOSE LOSARTAN ORDERED TO START TOMORROW MORNING. PT HAD C/O PAIN IN HER RLE KNEE. PT MEDICATED WITH NEW PRN BENGAY ONCE AND WRAPPED LOOSLY WITH FRANCO WRAP. PT STATES THE KNEE FEELS MUCH BETTER AND SHE DECLINED AN ADDITIONAL DOSE OF THIS MED. OFFERED NORCO AND THE PT STATED NOT YET, PRIOR TO SHIFT CHANGE. AT THE TIME OF BEDSIDE REPORT NIGHT RN AND THIS RN ASSISTED THE PT FROM THE RECLINER TO THE BSC. PT SEEMS COOPERATIVE WITH CARE AT THIS TIME. MEPILEXES C/D/I AT THE TIME OF SHIFT CHANGE.
[2024-03-16 20:42] VITALS: BP 167/76
[2024-03-17 05:01] VITALS: BP 167/79
[2024-03-17 07:54] VITALS: BP 166/72
[2024-03-17] MEDS ORDERED: Losartan Potassium 50 MG Tab PO SCH (09:00)
--- NOTE | 2024-03-17 13:06 | NUR ---
CALLED DR ZARINA DIAMOND ASSISTING THE PT TO BSC, AFTER THE PT SET OFF THE BED ALARM ATTEMPTING TO SELF TRANSFER. THERE WAS A STRONG ODOR IN THE ROOM OF URINE, DESPITE STAFF CHANGING LINNENS AND ENSURING THE PT ATTENDS ARE CLEAN AND DRY. PT BECAME UPSET AND TOLD THE MANUFACTURING AUTOMATION ENGINEER NOT TO STEAL HER MONEY. MANUFACTURING AUTOMATION ENGINEER ASSURED HER SHE WAS JUST CHANGING THE LINNENS, THE PT SNATCHED A ZIPLOCK BAG OUT FROM UNDER HER INGRID THAT LOOKS TO BE FILLED WITH COINS AND EVANS. OFFERED TO SEND IT WITH SECURITY TO BE LOCKED IN THE SAFE, PT REFUSED. LATER IN THE DAY THE DARA, AGAIN WAS ASSISTING THE PT TO THE BSC WHEN THE PT BECME UPSET ABOUT HER MULTIPLE EMPTY BOTTLES GETTING KNOCKED OFF THE BEDSIDE TABLE. DARA BEGAN TO CLEAN TH ROOM AND WENT TO PUT THE EMPTY BOTTLES IN THE PT BELONINGS AND FOUND THE PT HAD MULTIPLE PILLOWCASES IN A BAG WITH SOME OTHER LINNENS. THOSE WERE REMOVED AND TWO BELONGINGS BAGS OF BOTTLES WERE CLOSED AND PLACED WITH PT BELONGINGS. THE PT HAD SOME PERSONAL BLANKETS THAT WERE THEN NOTED TO BE COATED IN A LAYER OF FECES AND DRY URINE. THEY WERE BAGGED IN A LINNEN BAG AND SEALED TIGHTLY. PT BECAME ANGRY AND INSISTED THAT STAFF NOT GO THROUGH HER THINGS IT WAS NOTED THERE WAS A BAG OF PERSCRIPTION MEDICATIONS IN THE PT BELONGINGS. ORE DRESSING ENGINEER NOTIFIED AND REMOVED THE MEDS AND TOOK TO PHARMACY TO BE LOCKED UP. ALSO IN THE BAG WAS A CAN OF PEPPER SPRAY THAT WAS LOCKED UP IT IS A WEAPON. CAME TO SPEAK TO THE PT AND IS AWARE OF THE PT AGITATION AMD DESIRE TO LEAVE AT THIS TIME.
[2024-03-17 16:25] VITALS: BP 137/71
--- NOTE | 2024-03-17 17:58 | NUR ---
SHIFT SUMMARY PATIENT HAD REFUSED HER STOOL SOFTNER BUT HAD A BM THIS SHIFT. SHE REFUSED HER BLOOD GLUCOSE CHECK BERFOR DINNER. PT AMBULATES 1P STAND BY ASSIST. PT HAD PAIN IN HER RT KNEE, PAIN MEDS ADMINISTERD AND BENGAY WITH AN FRANCO BANDAGE APPLIED. PT ALERT AAOX4. VITALS SIGNS VIEWED. PATIENT REFUSED DINNER THEN OFFERED TWO SANDWICHES, PT HAD GOOD APPETITE. CALL LIGHT WITHIN REACH.
[2024-03-17 19:30] VITALS: BP 140/73
[2024-03-18 04:19] VITALS: BP 148/74
--- NOTE | 2024-03-18 06:05 | NUR ---
SHIFT SUMMARY: Pt is admitted for right hip FX and is a full code. Is alert and able to make most needs known. ADLs have been SBA -1p depending on activity. Was given PRN pain management x1. Dressing to right hip CDI.
[2024-03-18 07:22] VITALS: BP 145/124
--- NOTE | 2024-03-18 12:57 | NUR ---
ORDER TO REMOVE SURGICAL MEÑO FROM R HIP. EDUCATED PATIENT REGARDING PROCEDURE AND SHE AGREED TO PROCEED. FOAM DRESSINGS REMOVED WITHOUT INCIDENT. INCISIONS CLEANED WITH ALCOHOL. A TOTAL OF 11 MEÑO REMOVED FROM A TOTAL OF 3 INCISIONS. INCISIONS ARE ALL WELL APPROXIMATED, SURROUNDING SKIN INTACT AND WNL FOR THIS PATIENT. PT REQUESTED STERI STRIPS BE PLACED TO PROTECT THEM AND THIS WAS DONE. PATIENT TOLERATED PROCEDURE WELL.
[2024-03-18 15:51] VITALS: BP 109/62
--- NOTE | 2024-03-18 18:34 | NUR ---
SHIFT SUMMARY: NO ACUTE EVENTS. A&O X 2, CONFUSED. MEÑO REMOVED FROM R HIP INCISIONS. C/O PAIN IN RLE, HIP AND KNEE; MEDICATED WITH NORCO WITH ADEQUATE RELIEF. AMBULATED IN HALLWAY WITH PHYSICAL THERAPY USING FWW AND GB, HAS POOR ENDURANCE. REFUSING MOST MEDICATIONS AND DVT PROPHYLAXIS. GETTING UP TO BSC INDEPENDENTLY.
[2024-03-18 20:15] VITALS: BP 146/63
[2024-03-19 03:49] VITALS: BP 130/99
--- NOTE | 2024-03-19 05:32 | NUR ---
SHIFT SUMMARY 68 YR F ADMITTED ON 02/24/24. FULL CODE. NO ACUTE CHANGES THIS SHIFT. PT C/O SEVERE RIGHT LEG PAIN AND GIVEN PAIN MEDS PER EMAR. ALL OTHER MEDS WERE REFUSED THIS SHIFT. PT HAS BEEN PLEASANT AND POLITE AND HAS SLEPT OFF AND ON THROUGHOUT THE SHIFT. SHE IS ABLE TO GET UP TO BSC BUT IT IS VERY PAINFUL TO DO SO. BED IN LOW POSITION AND CALL LIGHT IN REACH. WILL CONTINUE TO MONITOR.
[2024-03-19 07:20] VITALS: BP 111/55
--- NOTE | 2024-03-19 10:30 | NUR ---
PATIENT HAD BEEN ADVISED BY PROVIDER THAT SHE COULD LEAVE AMA IF SHE DESIRED. PT EDUCATED THAT LEAVING AMA COULD LEAD TO FURTHER INJURY, DISABILITY, AND EVEN ; ALSO EDUCATED THAT SHE WOULD BE LEAVING UNDER HER OWN POWER, WOULD NOT BE PRESCRIBED ANY PAIN MEDICATIONS FOR HOME, WOULD HAVE TO ARRANGE HER OWN TRANSPORTATION, AND MAKE HER WAY DOWNSTAIRS ON HER OWN. SHE AGREED, THEN ASKED FOR HELP TO GO DOWNSTAIRS. DR. GIBBS AND CHARGE NURSE NOTIFIED IN PERSON. THIS AUTHOR AND Ladarius POLK, CLINICAL COORDINATOR, TRIED TO GET PT TO STAY BUT SHE ADAMANTLY REFUSED. PATIENT'S HOME MEDICATIONS RETURNED TO HER. SHE SIGNED AMA FORM AND LEFT UNIT AT 0935. NO PERSONAL BELONGINGS LEFT BEHIND IN ROOM.
== END 2024-03-19 09:43 | disposition left against medical advice (07) | DRG 482 ==
LOC: ER 17:48 → ERHOLD 17:49 → SURS 17:49 → MEDS 02-24 12:54 → SURS 02-24 12:54 → MEDS 02-28 08:48
PROVIDERS: Orthopaedic Surgery; Student in an Organized Health Care Education/Training Program; ADMIT Student in an Organized Health Care Education/Training Program
PROC: 0QH636Z Insertion of Intramedullary Internal Fixation Device into Right Upper Femur, Percutaneous Approach (ICD-10-PCS; principal; 2024-02-24 08:00)
DX: S72.141A Displaced intertrochanteric fracture of right femur, initial encounter for closed fracture (principal); I10 Essential (primary) hypertension; E66.9 Obesity, unspecified; R41.89 Other symptoms and signs involving cognitive functions and awareness; E11.65 Type 2 diabetes mellitus with hyperglycemia; W13.8XXA Fall from, out of or through other building or structure, initial encounter; E78.5 Hyperlipidemia, unspecified; R26.89 Other abnormalities of gait and mobility; I69.311 Memory deficit following cerebral infarction; I69.398 Other sequelae of cerebral infarction; Y92.008 Other place in unspecified non-institutional (private) residence as the place of occurrence of the external cause; Z53.29 Procedure and treatment not carried out because of patient's decision for other reasons; Z88.0 Allergy status to penicillin; Z79.84 Long term (current) use of oral hypoglycemic drugs; Z68.25 Body mass index [BMI] 25.0-25.9, adult
CPT/HCPCS: 36415; 73502; 80053; 82947; 83735; 85025; 85610; 93005; 93010; 94762; 96374; 96375; 96376; 97110; 97112; 97116; 97129; 97140; 97162; 97166; 97530; 97535; 99285-25; A9270; C1713; G0378; J0690; J1100; J1815; J1885; J2270; J2371; J2704; J2795; J3010; J7050

== ENCOUNTER 2024-03-31 18:10 | Inpatient (IN) | payer MEDICARE ==
[~2024-03-31] VITALS: Ht 165.1 cm; Wt 79.5 kg
[2024-03-31 19:26] LABS: Source, Urine Foley catheter
[2024-03-31 19:29] LABS: Appearance, Urine Clear (Clear); Bilirubin, Urine Neg (Neg); Blood, Urine 3+ (Neg); Color, Urine Yellow (P-Yellow); Glucose Qualitative, Urine 4+ (Neg); Ketones, Urine 4+ (Neg); Leukocyte Esterase, Urine 3+ (Neg); Nitrite, Urine Pos (Neg); Protein, Urine 2+ (Neg); Specific Gravity, Urine 1.025 (1.003-1.022); Urobilinogen, Urine NORM (Normal)
[2024-03-31 19:43] LABS: U Amphetamine Screen Not Detected; U Barbituate Screen Not Detected; U Benzodiazapine Screen Not Detected; U Buprenorphine Screen Not Detected; U Cannabinoids Screen Not Detected; U Cocaine Screen Not Detected; U Methadone Screen Not Detected; U Methamphetamine Screen Not Detected; U Opiates Screen Not Detected; U Oxycodone Screen Not Detected; U Phencyclidine Screen Not Detected
[2024-03-31 19:44] LABS: Bacteria Many /hpf; Squamous Epithelial Cells Mod /hpf (Few)
[2024-03-31 19:45] LABS: Hyaline Casts 0-2 /lpf (0-2); Mucus Light (0-Heavy)
[2024-03-31 20:15] LABS: BASOPHILS ABSOLUTE AUTO 0.03 K/mm3 (0.00-0.23); BASOPHILS PERCENT AUTO 0 % (0-2); EOSINOPHILS PERCENT AUTO 0 % (0-6); Hemoglobin 11.2 g/dL (11.5-16.0); IMMATURE GRAN ABSOLUTE AUTO 0.07 K/mm3 (0.00-0.10); IMMATURE GRAN PERCENT AUTO 1 % (0-1); LYMPHOCYTES ABSOLUTE AUTO 0.45 K/mm3 (0.84-5.20); LYMPHOCYTES PERCENT AUTO 3 % (21-46); MONOCYTES ABSOLUTE AUTO 1.49 K/mm3 (0.16-1.47); MONOCYTES PERCENT AUTO 10 % (4-13); Mean Corpuscular HGB 28.9 pg (26.0-34.0); Mean Corpuscular HGB Conc 33.9 g/dL (31.5-36.5); Mean Corpuscular Volume 85 fL (80-100); Mean Platelet Volume 9.3 fL (9.1-12.4); NEUTROPHILS ABSOLUTE AUTO 12.81 K/mm3 (1.96-9.15); NEUTROPHILS PERCENT AUTO 86 % (41-73); Platelet Count 349 K/mm3 (150-400); RDW Coefficient Variation 12.4 % (11.7-14.2); RDW Standard Deviation 38.2 fL (35.1-46.3); Red Blood Cell Count 3.88 M/mm3 (3.80-5.20); White Blood Cell Count 14.85 K/mm3 (4.00-11.30)
[2024-03-31] MEDS ORDERED: NS 1,000 ML IV SCH (20:25)
[2024-03-31] MEDS ORDERED: CefTRIAXone Sodium 1,000 MG in NS 100 ML IV ONE (20:30)
[2024-03-31 20:37] LABS: Albumin/Globulin Ratio 0.8 (0.8-1.8); Bilirubin, Total 0.8 mg/dL (0.1-1.0); Bun/Creatinine Ratio 42.9 (12.0-20.0); Calcium, Blood 8.8 mg/dL (8.5-10.1); Creatinine, Blood 0.61 mg/dL (0.40-1.00); Globulin, Blood 3.6 g/dL (2.2-4.0); Potassium, Blood 3.4 mmol/L (3.5-5.5); Total Protein, Blood 6.6 g/dL (6.4-8.2)
[2024-03-31] MEDS ORDERED: CEPH500 PO (22:18)
[2024-03-31] MEDS ORDERED: CefTRIAXone Sodium 1,000 MG in NS 50 ML IV ONE (22:20)
[2024-04-01] MEDS ORDERED: MetFORMIN HCl 500 mg PO SCH (08:00)
[2024-04-01] MEDS ORDERED: Naproxen 500 MG Tab PO PRN (08:50)
[2024-04-01] MEDS ORDERED: Acetaminophen 325 MG TABLET PO PRN (08:50)
[2024-04-01] MEDS ORDERED: Potassium Chloride 10 Meq Tablet SA PO ONE (09:00)
[2024-04-01] MEDS ORDERED: Spironolactone 50 MG Tab PO SCH (09:00)
[2024-04-01] MEDS ORDERED: Losartan/HCTZ 50-12.5 TAB PO SCH ×2 (09:00)
[2024-04-01] MEDS ORDERED: CefTRIAXone Sodium 1,000 MG in NS 100 ML IV SCH (09:00)
[2024-04-01 10:19] VITALS: BP 136/58
[2024-04-01 15:00] VITALS: BP 132/60
[2024-04-01] MEDS ORDERED: CefTRIAXone Sodium 1,000 MG in NS 100 ML IV ONE (15:50)
[2024-04-01] MEDS ORDERED: NS 1,000 ML IV ONE (16:50)
--- NOTE | 2024-04-01 19:32 | NUR ---
report received from er, pt arrived a/o x 4, i am very familar with pt so pt was friendly with me unlike in the er where she was not very nice. full body bath preformed pics of multiple pressure wounds and lindsey documented and taken care of. pt refused iv care but i was able to convince pt she needed the care so blood work was able to be done. then i was able to convince pt to have an iv placed. antibiotic were able to be given. vizcaino draining well and pt was also transfered to bs and had large bm. pt now sleeping no distress noted critical values for lactic acid were called in to MD and bolus was given.
[2024-04-01 20:21] VITALS: BP 116/45
[2024-04-01] MEDS ORDERED: Silver Sulfadiazine 1% Cream 400 gm TOP SCH (21:00)
[2024-04-01] MEDS ORDERED: Nystatin 100,000 Unit/GM CREAM 15 GM TOP SCH (21:00)
[2024-04-02 03:29] VITALS: BP 166/67
--- NOTE | 2024-04-02 03:56 | NUR ---
UTILITY LINEMAN SUMMARY BP ELEVATED, OTHERWISE VSS. LACTIC ACID LEVEL WAS 2.9, BUT TRENDING DOWN FROM 3.5 EARLIER. AM RN REPORTED PLAN IS TO GET GUARDIANSHIP WHILE HERE. PT ALERT TO QUESTIONS ASKED, LESS AGITATED THAN NOTED WITH PRIOR RECENT STAY IN THE HOSPITAL. NOTE HAS REPORTED SUNBURN OVER MUCH OF HER BODY, ALSO HAS SOME ESCORIATIONS IN GROIN AND BENEATH BRESTS. OINTMENT APPLIED - SEE MAR FOR DETAILS. FERNANDES DRAINING. REPOSITIONED INTERMITTENTLY, ABLE TO ASSIST. HAS BEEN RSTING QUIETLY WITH FEW INTERRUPTIONS. CALL LIGHT IN REACH, RAILS UP X 2 AND BED IN LOW POSITION FOR SAFETY. WILL CONTINUE TO MONITOR
[2024-04-02 05:37] LABS: BASOPHILS ABSOLUTE AUTO 0.03 K/mm3 (0.00-0.23); BASOPHILS PERCENT AUTO 0 % (0-2); EOSINOPHILS ABSOLUTE AUTO 0.03 K/mm3 (0.00-0.68); EOSINOPHILS PERCENT AUTO 0 % (0-6); Hematocrit 31.6 % (33.0-51.0); Hemoglobin 10.6 g/dL (11.5-16.0); IMMATURE GRAN ABSOLUTE AUTO 0.03 K/mm3 (0.00-0.10); IMMATURE GRAN PERCENT AUTO 0 % (0-1); LYMPHOCYTES PERCENT AUTO 7 % (21-46); MONOCYTES ABSOLUTE AUTO 0.78 K/mm3 (0.16-1.47); MONOCYTES PERCENT AUTO 9 % (4-13); Mean Corpuscular HGB 29.4 pg (26.0-34.0); Mean Corpuscular HGB Conc 33.5 g/dL (31.5-36.5); Mean Corpuscular Volume 88 fL (80-100); Mean Platelet Volume 9.3 fL (9.1-12.4); NEUTROPHILS ABSOLUTE AUTO 7.09 K/mm3 (1.96-9.15); NEUTROPHILS PERCENT AUTO 83 % (41-73); Platelet Count 317 K/mm3 (150-400); RDW Coefficient Variation 12.7 % (11.7-14.2); RDW Standard Deviation 40.9 fL (35.1-46.3); White Blood Cell Count 8.56 K/mm3 (4.00-11.30)
[2024-04-02 05:57] LABS: Albumin, Blood 2.4 g/dL (3.4-5.0); Albumin/Globulin Ratio 0.7 (0.8-1.8); Bilirubin, Total 0.4 mg/dL (0.1-1.0); Bun/Creatinine Ratio 36.3 (12.0-20.0); Calcium, Blood 8.8 mg/dL (8.5-10.1); Creatinine, Blood 0.55 mg/dL (0.40-1.00); Globulin, Blood 3.4 g/dL (2.2-4.0); Potassium, Blood 3.7 mmol/L (3.5-5.5); Total Protein, Blood 5.8 g/dL (6.4-8.2)
[2024-04-02 07:13] VITALS: BP 121/56
[2024-04-02] MEDS ORDERED: Enoxaparin 40 MG/0.4 ML SYR SC SCH (09:00)
[2024-04-02 15:00] VITALS: BP 124/53
--- NOTE | 2024-04-02 17:44 | NUR ---
REPORT RECEIVED VERIFIED, A/O DID VERY WELL TODAY AND SLEPT A GOOD PORTION OF THE SHIFT. RIGHT KNEE PAIN AND NECK PAIN MEDICATED WITH MAR AND HEATING PAD. TRANSFER TO [facility] PROVED TO BE VERY DIFFICULT FOR PT NEEDING 2 NURSES AND FULL LIFT. PT SLEEPING NOW VSS NO CHANGE IN CONDITON
[2024-04-02 19:41] VITALS: BP 123/71
--- NOTE | 2024-04-03 05:17 | NUR ---
SHIFT SUMMARY: PATIENT MOSTLY RESTED THIS SHIFT WITH BLANKET OVER HEAD. HAS FERNANDES IN PLACE. RIGHT HEAL HAS BIG AREA THAT LOOKS THOUGH IT MIGHT COME OFF AND LEAVE A LARGE PRESSURE ULCER. AT BEGINNING OF SHIFT, UPSET THAT "SOMEONE STOLE MY MONEY". RIGHT KNEE QUITE SWOLLEN, STATES IS PAINFUL WHEN MOVED. COOPERATIVE WITH CARES BUT RELUCTANT TO INTERACT.
[2024-04-03 05:30] VITALS: BP 141/65
[2024-04-03 05:55] LABS: Hematocrit 30.6 % (33.0-51.0); Hemoglobin 10.1 g/dL (11.5-16.0); Mean Corpuscular HGB 28.9 pg (26.0-34.0); Mean Corpuscular Volume 87 fL (80-100); Mean Platelet Volume 9.7 fL (9.1-12.4); Platelet Count 324 K/mm3 (150-400); RDW Coefficient Variation 12.8 % (11.7-14.2); RDW Standard Deviation 40.9 fL (35.1-46.3); White Blood Cell Count 6.48 K/mm3 (4.00-11.30)
[2024-04-03 07:01] LABS: Albumin, Blood 2.5 g/dL (3.4-5.0); Albumin/Globulin Ratio 0.7 (0.8-1.8); Bilirubin, Total 0.3 mg/dL (0.1-1.0); Calcium, Blood 8.9 mg/dL (8.5-10.1); Creatinine, Blood 0.53 mg/dL (0.40-1.00); Globulin, Blood 3.4 g/dL (2.2-4.0); Potassium, Blood 3.7 mmol/L (3.5-5.5); Total Protein, Blood 5.9 g/dL (6.4-8.2)
[2024-04-03 07:42] VITALS: BP 137/63
[2024-04-03] MEDS ORDERED: cefTAZidime 2,000 MG in NS 100 ML IV SCH ×2 (08:34→09:00)
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
[2024-04-03 20:02] VITALS: BP 146/70
[2024-04-04 03:56] VITALS: BP 136/84
--- NOTE | 2024-04-04 04:26 | NUR ---
SHIFT SUMMARY. PATIENT IS ALERT WITH CONFUSION AND PARANOIA. PATIENT FIXATED ON HER MONEY AND REPORTS THAT IT IS "THERE AND THEY KNOW WHERE IT IS AND WHY WOULD THEY HAVE LEFT IT THERE WHEN THEY KNEW WHERE IT IS AND I WAS LEAVING". DISCUSSED WITH PATIENT THAT THERE WAS NO BAG OR PURSE IN HER ROOM, PATIENT STATES SHE DOESNT KNOW WHERE IT IS BUT THEY KNOW. TALKED WITH PATIENT ABOUT CONTACTING PATIENT ADVOCATE IN THE MORNING AND SEEING OF ANY RESOURCES AVALIABLE FOR PATIENT. PATIENT IS COOPERATIVE WITH [facility]. PATIENT DOES REPORT THAT SHE DOES NOT TAKE CERTAIN MEDICATIONS BECAUSE THE DOCTOR IN [place] TOLD HER SHE DOESNT NEED THAT STUFF AND THAT IS WHY HER HEART IS HEALTHY BECAUSE SHE DOES NOT TAKE ALL THOSE MEDICATIONS. BANDAGE TO FEET. MEPILEX ON COCCYX. PATIENT SLEPT OFF AND ON T/O NIGHT. CATHETER IS PATENT AND DRAINING TO GRAVITY. BED IS LOCKED IN THE LOWEST POSITION WITH CALL LIGHT IN REACH. NO S/S OF DISTRESS NOTED AT THIS TIME. CARE IS ONGOING.
[2024-04-04] MEDS ORDERED: Pantoprazole Sodium 40 MG Tab PO SCH (06:00)
[2024-04-04 06:41] LABS: Bun/Creatinine Ratio 26.9 (12.0-20.0); Creatinine, Blood 0.56 mg/dL (0.40-1.00); Potassium, Blood 4.1 mmol/L (3.5-5.5)
[2024-04-04 08:28] VITALS: BP 156/61
--- NOTE | 2024-04-04 09:00 | NUR ---
pt laying in bed awake a/ox 1-2 this am, she is very pleasnt and coopertive with care this am, took po meds without diff, lungs are clear t/o, resp even and unlabored no cough noted, on r/a, hrr, piv to rfa site is clear and patent, btx4, abd flat soft nontender, voids via vizcaino cath draining clear yellow urine, skin has lindsey to b/l feet, right is worse with blister, knees looked to be bruised, bottom is slightly red,and slight sunburn, dressings to feet, maew, dangles herself on the side of the bed, lola, call light in reach.
[2024-04-04] MEDS ORDERED: Insulin Human Lispro 100 Units/ML 3ML Syringe SC SCH (16:30)
[2024-04-04 18:07] VITALS: BP 168/85
--- NOTE | 2024-04-04 19:37 | NUR ---
pt has been very pleasant and cooperative and in good spirits this shift. no acute changes, she had a shower, she had a hard time standing, so took her via wheelchair to the shower and had assistance, states she felt much better after, she removed her piv states it was hurting, placed new 20g to rfa with one attempt, and good blood return, no further changes this shift. call light in reach.
[2024-04-04 20:10] VITALS: BP 139/77
--- NOTE | 2024-04-04 21:30 | NUR ---
PATIENT IS ASKING FOR HER GLIPIZIDE AND CONCERNED THAT SHE DID NOT TAKE IT YESTERDAY. PATIENT REFUSED HER ANTIBIOTIC D/T NOT HAVING HER GLIPIZIDE. PATIENT STATES "IM NOT GOING TO TAKE HIS MEDICATION IF I CANT TAKE MINE". THIS RN ATTEMPTED TO EDUCATE PATIENT ON IMPORTANCE OF HER ANTIBIOTICS; PATIENT NON-RECEPTIVE.
[2024-04-05 03:23] VITALS: BP 153/79
--- NOTE | 2024-04-05 04:05 | NUR ---
PATIENT HAS ASKED AND REQUESTED GLIPIZIDE NUMEROUS TIMES THIS SHIFT. HOSPITALIST CONTACTED NO CHANGES TO MEDICATIONS MADE. DR. MCCORMICK ADVISED TO EDUCATE THE PATIENT ON INSULIN AND HOW IT IS A NATURAL FORM OF MEDICATION TO TREAT DIABETES IN COMPARRISION TO ORAL MEDICATIONS.
--- NOTE | 2024-04-05 04:22 | NUR ---
IN PATIENT ROOM TO EDUCATE PATIENT ON INSULIN AND THAT AT THIS TIME GLIPIZIDE IS NOT GOING TO BE STARTED; PATIENT BECAME VERY UPSET. PATIENT RAISING HER VOICE AND YELLED "I HATE THIS HOSPITAL, IF I CANT GET MY MEDICATIONS THEN I WILL JUST LEAVE AND GO SOMEWHERE ELSE THAT WILL GIVE THEM TO ME". ATTEMPTED TO REDIRECT PATIENT BUT WAS UNSUCCESSFUL.
--- NOTE | 2024-04-05 04:25 | NUR ---
SHIFT SUMMARY PATIENT IS ALERT TO SELF. PATIENT IS CONCRETE IN HER DECISIONS. PATIENT ADMITTED FOR ACUTE METABOLIC ENCEPHALOPATHY. PATIENT NOT VERY COOPERATIVE WITH CARE. PATIENT PLEASANT AT BEGINNING OF SHIFT UNTIL PATIENT FIXATED ON HER GLIPIZIDE. ATTEMPTS TO REDIRECT THE PATIENT WERE UNSUCCESSFUL. PATIENT HAS COURT ORDER IN FRONT OF CHART FOR TEMPORARY GUARDIANSHIP AWARDED ON 04/03/24. PATIENT. PATIENT RESTED OFF AND ON T/O THE NIGHT WITH TIMES OF DANGLING HER FEET. PATIENT HAS A FERNANDES CATHETER IN THE IS PATENT AND DRAINING TO GRAVITY. BED IS LOCKED IN THE LOWEST POSITION WITH CALL LIGHT IN REACH. CARE IS ONGOING.
[2024-04-05 07:19] VITALS: BP 126/64
[2024-04-05] MEDS ORDERED: GlipiZIDE 5 MG TabCR PO SCH (10:00)
[2024-04-05] MEDS ORDERED: Ciprofloxacin 500 MG Tab PO SCH (10:00)
--- NOTE | 2024-04-05 15:07 | NUR ---
MD CALL MS BECKER HAS BEEN FREQUENTLY REQUESTING CRANBERRY JUICE. HER BLOOD GLUCOSE WAS 351 PRIOR TO LUNCH AND SHE HAS HAD ONE CRANBERRY JUICE SINCE LUNCH. SHE WAS OFFERED LOW SUGAR ALTERNATIVES AND THREW THEM ACROSS THE ROOM. SHE REFUSED TO TAKE INSULIN TO COVER HER BLOOD SUGAR BEFORE BREAKFAST AND HAS SINCE BEEN CONVERTED TO ORAL HYPOGLYCEMICS. SHE SAID THAT SHE WOULD RATHER THAN NOT EAT AND DRINK WHAT SHE WANTS. VM LEFT FOR DR GRIMM PT IS ANGRY THAT SHE IS ON A CONSISTANT CARB DIET.
--- NOTE | 2024-04-05 16:40 | NUR ---
SHIFT SUMMARY MS BECKER HAD FERNANDES REMOVED AT 0950, HAS VOIDED SINCE, UP TO BS. SHE WAS VERY CONCERNED ABOUT TAKING INSULIN AND HAS SINCE BEEN SWITCHED TO ORAL HYPOGLYCEMICS. SHE HAS BEEN INSISTANT ON DRINKING CRANBERRY JUICE AND HAS REFUSED WATER, BECOMING AGITATED THAT PEOPLE WOULD TRY TO CONTROL WHAT SHE EATS AND DRINKS DESPITE HER BLOOD GLUCOSE GREATER THAN 350. DR GRIMM CAME UP AND TALKED WITH HER AND SHE AGREED TO DRINK WATER, BUT THEN WOULD SAY THAT SHE DOESN'T LIKE TO DRINK WATER. FEET WOUNDS CLEANSED AND REDRESSED THIS MORNING. SHE HAS BEEN ABLE TO STAND/PIVOT TO GET TO BSC. BED LOW, CALL LIGHT IN REACH.
[2024-04-05 19:20] VITALS: BP 154/75
[2024-04-05] MEDS ORDERED: Lactobacil 2-S.Thermo-Bifido 1 1 Cap PO SCH (21:00)
--- NOTE | 2024-04-05 21:57 | NUR ---
BANDAGES TO BILATERAL FEET CHANGED. WOUND CLEANED, CREAM APPLIED, AND BANDAGES CHANGED. PATIENT TOLERATED WELL. PATIENT STATES "MY FEET FEEL BETTER THEY JUST NEED MORE TIME TO GET RIGHT".
[2024-04-06 05:18] VITALS: BP 136/70
[2024-04-06 06:53] LABS: Hematocrit 34.4 % (33.0-51.0); Hemoglobin 11.8 g/dL (11.5-16.0); Mean Corpuscular HGB 29.7 pg (26.0-34.0); Mean Corpuscular HGB Conc 34.3 g/dL (31.5-36.5); Mean Corpuscular Volume 87 fL (80-100); Mean Platelet Volume 8.9 fL (9.1-12.4); Platelet Count 399 K/mm3 (150-400); RDW Coefficient Variation 12.5 % (11.7-14.2); RDW Standard Deviation 39.6 fL (35.1-46.3); Red Blood Cell Count 3.97 M/mm3 (3.80-5.20); White Blood Cell Count 4.98 K/mm3 (4.00-11.30)
[2024-04-06 07:12] LABS: Bun/Creatinine Ratio 26.4 (12.0-20.0); Calcium, Blood 9.4 mg/dL (8.5-10.1); Creatinine, Blood 0.61 mg/dL (0.40-1.00); Potassium, Blood 3.9 mmol/L (3.5-5.5)
[2024-04-06 07:18] VITALS: BP 93/59
[2024-04-06 08:08] VITALS: BP 134/72
[2024-04-06 15:08] VITALS: BP 139/58
--- NOTE | 2024-04-06 16:59 | NUR ---
SHIFT SUMMARY MS BECKER HAD C/O HEADACHE/TOOTHACHE TODAY, HELPED WITH TYLENOL. SUNBURNED FEET CLEANSED AND REDRESSED THIS MORNING WITH IMPROVEMENT NOTED. REDNESS TO GROIN AND UNDER BREASTS HAS REDUCED WITH NYSTATIN TREATMENT. MS BECKER SHOWERED TODAY. BED LOW, CALL LIGHT IN REACH.
[2024-04-06 19:29] VITALS: BP 141/73
[2024-04-07 03:18] VITALS: BP 168/73
--- NOTE | 2024-04-07 06:34 | NUR ---
HAUL CANE BRAKEMAN SUMMARY NO CHANGES TO PT CONDITION. PT AGREEABLE TO TAKE BEDTIME MEDICATIONS. PT REFUSED 0600 PROTONIX AND REQUESTED TO POSTPONE MORNING LABS.
[2024-04-07 07:58] VITALS: BP 125/61
[2024-04-07] MEDS ORDERED: GlipiZIDE 5 MG TabCR PO SCH (08:00)
[2024-04-07 16:43] VITALS: BP 112/63
--- NOTE | 2024-04-07 16:58 | NUR ---
SHIFT SUMMARY MS BECKER HAS HAD AN UNEVENTFUL DAY SO FAR. FEET SUNBURN WOUNDS CLEANSED AND REDRESSED, UPDATED PHOTOGRAPHS IN THE CHART. MEPILEX TO COCCYX STAGE 2 PRESSURE SORE AND UPDATED PHOTO IN CHART OF THAT TOO. SHE INDEPENDENTLY CHANGES POSITION AND TURNS ONTO HER SIDES. SHE HAS BEEN PRETTY RELAXED TODAY. BED LOW, CALL LIGHT IN REACH.
[2024-04-07 19:50] VITALS: BP 129/101
[2024-04-08 07:53] VITALS: BP 95/78
[2024-04-08 15:16] VITALS: BP 114/67
--- NOTE | 2024-04-08 17:31 | NUR ---
DAYSHIFT SUMMARY Patient alert & oriented x2-3. No acute changes to patient status. Patient took all medications, except for lovenox injection. COG evaluation completed by OT. Dr. López called and stated he would be by tomorrow to see patient. Vitals stable. Will continue plan of care.
[2024-04-08 20:41] VITALS: BP 146/68
--- NOTE | 2024-04-09 05:31 | NUR ---
MINT MACHINE OPERATOR SUMMARY NO CHANGES TO PT CONDITION. DRESSING TO BILAT CHANGES. WOUNDS WASHED WITH CLEANSER. APPLIED RIVERS CREAM AND WRAPPED. PT TOLERATED WELL AND COOPERATIVE.
[2024-04-09 07:53] VITALS: BP 110/67
[2024-04-09 15:32] VITALS: BP 98/61
--- NOTE | 2024-04-09 16:18 | NUR ---
PT AOX3 WITH CONFUSION. PT HAS BEEN DOING OKAY TODAY AND TOOK MOST OF HER MEDICATIONS. PT ALLOWED THIS ESCROW CLOSER TO CHANGE FOOT BANDAGES PER EMAR.PT TOLERATED WELL NO DISTRESS NOTED. PT HAS CALLED APPROPRIATELY. INDEPENDENT IN ROOM WILL CONTINUE TO MONITOR.
[2024-04-09 20:17] VITALS: BP 111/52
--- NOTE | 2024-04-10 04:11 | NUR ---
SHIFT SUMMARY KIARA WAS ALERT AND ORIENTED TO PERSON, PLACE, AND SITUATION AT THE START OF SHIFT. PT RESTED WELL T/O SHIFT WITH NO ACUTE EVENTS OR CHANGES TO CONDITION. PT HAS CONCERNS ABOUT HER SOCIAL SECURITY INCOME AND IS FIXATING, NO NEW COMPLAINTS. PT RESTING IN BED AT A LOW POSITION WITH CALL LIGHT IN REACH.
[2024-04-10 07:54] VITALS: BP 125/60
[2024-04-10 15:44] VITALS: BP 116/55
--- NOTE | 2024-04-10 16:38 | NUR ---
PT HAS BEEN AOX3 AND COOPERATIVE OF CARE. PT HAS BEEN INDEPENDENT IN ROOM NO DISTRESS NOTED. PT TOOK A SHOWER TODAY AND HAD FEET REWRAPPED WILL CONTINUE TO MONITOR. CALL LIGHT WITHIN REACH.
[2024-04-10 21:00] VITALS: BP 120/61
--- NOTE | 2024-04-11 04:36 | NUR ---
SHIFT SUMMARY CHU WAS ALERT AND ORIENTED X3 ON ASSESSMENT. NO CHANGES TO PT CONDITION MEDICALLY. PT STILL AGITATED ABOUT BEING UNSURE WHO HAS HER SOCIAL SECURITY ACCOUNT DEBIT CARD, AND HAVING LOST SOME EVANS PRIOR TO ADMIT. FOLLOW UP WITH CARE MANAGEMENT COULD BE INSIGHTFUL. PT RESTING IN BED AT LOW POSITION WITH CALL LIGHT IN REACH.
[2024-04-11 06:56] VITALS: BP 133/69
--- NOTE | 2024-04-11 07:30 | NUR ---
ASSUMED CARE PT SITTING UPRIGHT IN BED. DRESSINGS TO LEGS APPEAR CDI. NO ACUTE NEEDS AT THIS TIME.
--- NOTE | 2024-04-11 18:00 | NUR ---
SHIFT SUMMARY: PT MEDICATED FOR TOOTHACHE PAIN TODAY, DENTAL HYGIENIST AWARE AND PLANNING TO SEE PT. PT HAD GUARDIANSHIP HEARING TODAY AND STATES "I LOST BECAUSE DR MONROE SAID I NEED A GUARDIAN SO I'M GOING TO BRIELLE THIS HOSPITAL." PT COOPERATIVE WITH CARE AND MEDICATIONS BUT ANGRY WHEN TALKING ABOUT NEEDING GUARDIANSHIP. NO FURTHER NEEDS OR CONCERNS AT THIS TIME.
[2024-04-11 19:35] VITALS: BP 113/63
--- NOTE | 2024-04-12 04:29 | NUR ---
PT PLEASANT THIS SHIFT, BUT REFUSED ANTIBIOTIC, STATING " i DONT NEED THAT ANYMORE, IM NOT TAKING IT. " TYLENOL WAS GIVEN FOR BACK PAIN. SEE eMAR.
[2024-04-12 06:57] VITALS: BP 129/70
[2024-04-12 10:26] VITALS: BP 100/58
[2024-04-12 11:26] VITALS: BP 92/65
[2024-04-12 16:30] VITALS: BP 119/52
[2024-04-12] MEDS ORDERED: GlipiZIDE 5 MG TabCR PO SCH (18:00)
--- NOTE | 2024-04-12 18:20 | NUR ---
PATIENT IS ALERT AND ORIENTED WITH DEMENTIA. SHE HAS BEEN COOPERATIVE TODAY. WOUND CARE COMPLETED. UP TO [facility] INDEPENDENTLY. SHE HAS BEEN PARANOID PERIODICALLY. NO NEW CONCERNS. WILL CONTINUE TO MONITOR
[2024-04-12 19:56] VITALS: BP 135/54
[2024-04-13 02:34] VITALS: BP 119/56
[2024-04-13 07:15] VITALS: BP 126/67
[2024-04-13 15:23] VITALS: BP 109/93
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
[2024-04-13 19:55] VITALS: BP 99/49
[2024-04-14 07:15] VITALS: BP 119/78
[2024-04-14 15:18] VITALS: BP 135/51
[2024-04-14 19:14] VITALS: BP 129/68
--- NOTE | 2024-04-14 20:28 | NUR ---
SHIFT SUMMARY PATIENT TRANSFERRING INDEPENDENTLY TO BSC. ACCEPTING OF SKIN CARE, MINUS WOUND WRAPPING. DECLINING SOME MEDICATIONS AND SOME GLUCOSE CHECKS. MAKING STATEMENTS THAT SHE IS GOING TO BRIELLE DR MONROE, PERSISTENT IN THESE STATEMENTS. BOUNDRIES SET AND STAFF MAINTAINED THESE BOUNDRIES WHEN PATIENT CONTINUED TO VENT ABOUT THIS. ABLE TO USE CALL LIGHT. ABLE TO MAKE NEEDS KNOWN. CARES ONGOING.
[2024-04-15 05:42] VITALS: BP 143/72
[2024-04-15 07:32] VITALS: BP 103/67
--- NOTE | 2024-04-15 07:36 | NUR ---
SHIFT SUMMARY PT IS A&OX3. VSS ON RA. C/O L SIDE TOOTHACHE, MEDICATED WITH TYLENOL. UP INDEPENDENTLY TO BSC. REFUSING SOME MEDICATIONS. REFUSING SOME CARES. PERSEVERATES ON THINGS R/T HER CARE AND HEALTH. SLEPT T/O NOC. BED IN LOWEST POSITION, CALL LIGHT WITHIN REACH.
--- NOTE | 2024-04-15 17:32 | NUR ---
SHIFT SUMMARY PT A&OX4, BUT FORGETFUL, IRRITABLE, AND HAS FLIGHT OF IDEAS AT TIMES. PT REFUSED TYLENOL THIS AM FOR PAIN AND AFTERNOON VITALS. PT STATED, "TYLENOL DOESN'T HELP. I DON'T WANT IT." PT AGREEABLE TO TYLENOL AND NAPROXEN THIS AFTERNOON. PT REFUSED SOME CARE AND INTERVENTIONS THIS SHIFT. NO OTHER ACUTE CHANGES. CALL LIGHT WITHIN REACH AND PT ABLE TO MAKE NEEDS KNOWN.
[2024-04-15 19:52] VITALS: BP 97/67
--- NOTE | 2024-04-16 07:19 | NUR ---
SHIFT SUMMARY PT IS A&OX3. VSS ON RA. NO ACUTE CHANGES OR EVENTS. C/O L SIDE TOOTHACHE, MEDICATED WITH TYLENOL. UP INDEPENDENTLY TO BSC. REFUSING SOME MEDICATIONS. SLEPT T/O NOC. WHEN PIPE BENDER AND THIS RN ENTERED ROOM THIS AM FOR VITALS AND MEDICATIONS, SHE REFUSED EVERYTHING. STATED IT WAS TOO EARLY, SHE JUST WANTS TO SLEEP. "DON'T COME IN HERE AGAIN", USED VULGAR LANGUAGE AND WAS VERY RUDE. BED IN LOWEST POSITION, CALL LIGHT WITHIN REACH.
[2024-04-16 07:37] VITALS: BP 105/62
[2024-04-16 15:21] VITALS: BP 97/49
--- NOTE | 2024-04-16 17:29 | NUR ---
SHIFT SUMMARY NO ACUTE CHANGES THIS SHIFT. CALL LIGHT WITHIN REACH AND PT ABLE TO MAKE NEEDS KNOWN.
[2024-04-16 19:34] VITALS: BP 120/54
--- NOTE | 2024-04-17 05:09 | NUR ---
SHIFT SUMMARY PT IS A&OX3. VSS ON RA. NO ACUTE CHANGES OR EVENTS. C/O L SIDE TOOTHACHE, MEDICATED WITH TYLENOL AND NAPROXEN. UP INDEPENDENTLY TO BSC. REFUSING MOST MEDICATIONS. REFUSING BG TESTING. SLEPT T/O NOC. BED IN LOWEST POSITION, CALL LIGHT WITHIN REACH.
[2024-04-17 08:03] VITALS: BP 124/101
[2024-04-17 08:06] VITALS: BP 145/67
[2024-04-17] MEDS ORDERED: Naproxen 500 MG Tab PO PRN (11:20)
[2024-04-17] MEDS ORDERED: Ibuprofen 400 MG Tab PO PRN (11:40)
[2024-04-17 15:39] VITALS: BP 129/61
--- NOTE | 2024-04-17 17:25 | NUR ---
SHIFT SUMMARY PT MEDICATED FOR PAIN X1 THIS SHIFT. NO ACUTE CHANGES. CALL LIGHT WITHIN REACH AND PT ABLE TO MAKE NEEDS KNOWN.
[2024-04-17 19:47] VITALS: BP 131/61
--- NOTE | 2024-04-18 05:02 | NUR ---
PATIENT SLEPT A GOOD PART OF THE SHIFT, GIVEN PRN MOTRIN FOR TOOTH PAIN. DID REFUSE SOME MEDS AND CBG. HAS BEEN PLEASANT TO WORK WITH PAIEON.
[2024-04-18 07:37] VITALS: BP 111/74
[2024-04-18 15:28] VITALS: BP 112/54
--- NOTE | 2024-04-18 18:26 | NUR ---
SHIFT SUMMARY: PT IS A/O X 4, IND TO BSC IN ROOM, PLEASANT WITH CARES. PT REFUSED DINNER TIME BLOOD SUGAR. WOUNDS APPEAR TO BE NEALING WELL TO FEET. UPDATED PICTURES COMPLETED, WOUND CARE COMPLETED TO HEELS. RASH TO SKIN FOLDS, GROIN, UNDER BREASTS HAS RESOLVED. PT REFUSING NYSTATIN THERE ARE NO RASHES ANY LONGER. PT EATING WELL AND DRINKING FLUIDS WELL.
[2024-04-18 20:33] VITALS: BP 146/65
--- NOTE | 2024-04-19 05:10 | NUR ---
SHIFT SUMMARY - PT WAS IRRITATED AT THE BEGINNING OF THE SHIFT WHEN PREVIOUS RN SAID SHE HAD DEMENTIA AND A PREVIOUS HISTORY OF A STROKE - PT STRONGLY DISAGREED WITH BOTH, AND SAID "WE WERE LYING." PT DIDN'T WANT TO TAKE HER MEDICATION AT THE BEGINNING OF THE SHIFT, SHE BECAME ARGUMENTATIVE BECAUSE THEY "WEREN'T HER MEDS." SHE REPORTED SHE "DIDN'T LIKE THE DOCTORS CHANGING HER HOME MEDICATIONS." I REVIEWED MEDICATIONS TO BE GIVEN ON THE EMAR - PT REFUSED. PT HAS BEEN SLEEPING THROUGHOUT MOST OF THE NIGHT. FLUIDS AT BEDSIDE. CALL LIGHT WITHIN REACH. BED IN LOW POSITION. WILL CONTINUE TO MONITOR UNTIL AM SHIFT CHANGE.
--- NOTE | 2024-04-19 05:33 | NUR ---
PT REPORTS SHE "DOESN'T TAKE PRILOSEC." PT REPORTS HER "PAIN IS OKAY RIGHT NOW." PT CONTINUES TO BE UPSET ABOUT HER MEDICATIONS, AND REPORTS SHE IS GOING TO COMPLAIN ABOUT IT. SHE SAYS SHE IS "GOING TO TALK TO A BIGHT MAKER." PT SAYS SHE HAS BEEN TAKING THE SAME MEDICATIONS FOR "16 YEARS." SHE SAYS SHE TAKES GLIPIZIDE, METFORMIN, AND SPIRONOLACTONE BID - ATTEMPTED TO REVIEW HER MEDICATIONS SCHEDULED ON HER EMAR - PT WASN'T RECEPTIVE TO LISTENING.
[2024-04-19 07:28] VITALS: BP 133/55
[2024-04-19] MEDS ORDERED: Ibuprofen 400 MG Tab PO PRN (11:35)
[2024-04-19 14:49] VITALS: BP 152/62
--- NOTE | 2024-04-19 18:36 | NUR ---
SHIFT SUMMARY: PT HAD NO ACUTE CHANGES THROUGH THE DAY. CONTINUES TO REFUSE CBG. NO S/S OF HYPO OR HYPERGLYCEMIA. PT IS EATING DINNER WELL. SHE DID NOT EAT LUNCH BECAUSE SHE STATED SHE DID NOT GET WHAT SHE ORDERED. HOWEVER SHE IS EATING DINNER AND STATED SHE LIKES WHAT SHE IS EATING. PT HAD TOOTHACHE AND NEEDED PAIN MEDICATION ONE TIME THIS MORNING.
[2024-04-19 19:48] VITALS: BP 120/69
[2024-04-20 06:30] VITALS: BP 101/60
[2024-04-20 07:44] VITALS: BP 114/56
[2024-04-20 15:06] VITALS: BP 122/53
--- NOTE | 2024-04-20 18:30 | NUR ---
SHIFT SUMMARY MEDICATED FOR PAIN 2X TODAY. THIS MORNING WAS AFRAID HER DIET WOULD CHANGE IF SHE RECEIVED PAIN MEDS DUE TO TEXTURE BEING CHANGED YESTERDAY TO EASE ORAL PAIN BUT PT REPORTED BEING UNHAPPY WITH "BABY FOOD" AND CHANGED BACK TO REGULAR TEXTURE, THIS BEING DONE DUE TO A TOOTHACHE. INDEPENDENT IN ROOM TO BSC. REFUSED SOME OF HER MEDS INCLUDING LOVENOX INJECTION AND PROTONIX BUT OTHERWISE TOOK THE REST OF HER MEDS. HAS BEEN COOPERATIVE WITH VS, ASSESSMENT, AND MORNING BLOOD GLUCOSE CHECK.
[2024-04-20 21:06] VITALS: BP 114/68
[2024-04-21 03:12] VITALS: BP 149/70
[2024-04-21 07:30] VITALS: BP 132/52
[2024-04-21 15:28] VITALS: BP 124/61
--- NOTE | 2024-04-21 17:44 | NUR ---
SHIFT SUMMARY PT INDEPENDENT IN ROOM. SHOWER TAKEN THIS MORNING. SKIN MUCH IMPROVED FROM WHEN SHE FIRST ARRIVED TO HOSPITAL. TOP OF FEET APPEAR INTACT BUT SKIN FLAKEY, SPOKE WITH MD ABOUT IMPROVEMENT OF FEET. DRESSING TO HEELS CHANGED DUE TO SHOWER. HEELS BLACK BUT APPEAR TO BE IMPROVING OVER ORIGINAL PHOTOS WELL. PT WANTING TO DRINK SOMETHING OTHER THAN WATER OR DIET PEPSI. ASKED DIET OFFICE IF PT COULD GET GATORADE ZERO BUT IT ISN'T CARRIED HERE. APPARENTLY GATORADELYTE IS AVAILABLE BUT WAS NOTIFIED PTS AREN'T ALLOWED TO HAVE GOODS FROM THE [employer]. PT TALKATIVE WHEN IN ROOM.
[2024-04-21 20:39] VITALS: BP 137/70
--- NOTE | 2024-04-22 06:15 | NUR ---
Rn summary: Patient was alert and cooperative at beginning of shift. Pt was very talkative and pleasant. Pt continues to have sunburned red knees and legs but it is fading. Skin to tops of feet is new pink skin. Silvadine cream applied lightly. Pt is still requesting some type of diet drink other than diet pepsi. She did not like the lite gateraide. Pt resting in her room this shift with door closed. Patient waiting placement plans.
[2024-04-22 07:40] VITALS: BP 137/63
--- NOTE | 2024-04-22 15:15 | NUR ---
SHIFT SUMMARY PT SLEEPING AT START OF SHIFT AND DID NOT WANT TO BE WOKE FOR SHIFT REPORT, VS, OR MEDS UNTIL SHE WAS READY. PT WAS VERY IRRITABLE AND MEAN TO SVP GROUP DIRECTOR, REFUSING ALL CARE. PT LATER AWAKE AND SITTING UP TO EOB WILLING TO TAKE MOST OF AM MEDS. PT INDEPENDENT IN RM AND TO BTHRM. SLEEPING OFF AND ON THRU OUT SHIFT WHEN NOT SITTING UP TO EOB WATCHING TV. MEDICATED FOR C/O TOOTH PAIN X1 TO PRESENT. PT IS MEDICALLY STABLE WAITING PLACEMENT. CALL LT IN REACH.
[2024-04-22 15:18] VITALS: BP 93/58
[2024-04-22 20:01] VITALS: BP 137/49
[2024-04-23 03:37] VITALS: BP 110/57
--- NOTE | 2024-04-23 04:08 | NUR ---
SHIFT SUMMARY PT COOPERATIVE WITH CARE. PT HAS BEEN ASLEEP MUCH OF THE SHIFT. PT HAS NO COMPLAINTS OR NEEDS AT THIS TIME. WILL CONTINUE TO MONITOR.
[2024-04-23 07:25] VITALS: BP 116/48
[2024-04-23 16:04] VITALS: BP 126/69
--- NOTE | 2024-04-23 17:26 | NUR ---
SHIFT SUMMARY PT SLEEPING AGAIN AT START OF SHIFT. REFUSES CARE UNTIL AWAKE IN AM AND THEN HAS BEEN PLEASANT AND CO-OP THE REST OF THE DAY. PT ABLE TO SHOWER SELF. BED LINENS CHANGED WHILE IN SHOWER. SKIN TO FEET IS DRY AND PEELING; PT REQUESTED LOTION WHEN OUT OF SHOWER. GUARDIAN HERE TO VISIT THIS AFTERNOON AND TRYING TO ASSIST PT WITH PERSONAL DETAILS. PT REMAINS MEDICALLY STABLE, WAITING FOR PLACEMENT. MEDICATED FOR C/O TOOTH PAIN X2 THIS SHIFT. RESTING QUIETLY AT THIS TIME. CALL LT IN REACH.
[2024-04-23 19:48] VITALS: BP 126/69
[2024-04-24 04:08] VITALS: BP 152/68
--- NOTE | 2024-04-24 04:16 | NUR ---
SHIFT SUMMARY PT AWAKE MORE TONIGHT, BUT PT WAS ABLE TO SLEEP OFF AND ON THROUGH THE SHIFT. PT ASKED FOR SNACKS LAST NIGHT AND ASKED FOR HELP MAKING A PHONE CALL. PT REMINDED THAT IT WAS LATE AND THAT PHONE CALL WILL HAVE TO WAIT UNTIL THE BUSINESS IS OPEN THIS AM TO CALL. CALL LIGHT WITHIN HER REACH AND BED IN LOW POSITION. WILL CONTINUE TO MONITOR.
[2024-04-24 07:20] VITALS: BP 131/73
--- NOTE | 2024-04-24 13:32 | NUR ---
RN NOTE MS BECKER IS ABLE TO ANSWER ORIENTATION QUESTIONS, ASKS REPETATIVE QUESTIONS AND HAS CONFUSED ANSWERS TO CONVERSATIONAL QUESTIONS. SHE HAS C/O R KNEE PAIN AND REQUESTED RIGHT KNEE BE WRAPPED. FRANCO WRAP PLACEMENT APPROVED BY DR PHELAN AND SOON IT WAS APPLIED MR BECKER SAID THAT SHE FELT BETTER. SHE C/O TOOTHACHE THAT SEEMS TO BE A LONG-TERM CONCERN, GIVEN IBUPROFEN WITH SOME RELIEF. TOPS OF FEET ARE PINK HEALING SKIN. HEELS ARE VERY DARK INTACT BLISTERS. MS BECKER SAID THAT I WAS NOT PRERMITTED TO TAKE PHOTOGRAPHS OF HER WOUNDS TODAY, DESPITE EDUCATION ON REASON FOR INTERMITTANT PHOTOGRAPHS. HER ACCUCHECK WAS NOT RECORDED BEFORE BREAKFAST AND WAS 264 BEFORE LUNCH. MS BECKER SAID THAT SHE LIKES TO RUN AROUND 300 AND DECLINED EDUCATION ON DIET, BLOOD GLUCOSE AND DIABETES. SHE IS MOVING INDEPENDENTLY IN THE ROOM, MOSTLY RESTING IN BED. BED LOW, CALL LIGHT IN REACH.
[2024-04-24 15:44] VITALS: BP 141/61
--- NOTE | 2024-04-24 16:38 | NUR ---
SHIFT SUMMARY PLEASE SEE RN NOTE FROM 1332HRS. MS BECKER SAID SHE FEELS MUCH BETTER AFTER HAVING HER RIGHT KNEE WRAPPED. SHE HAS BEEN CALM AND COOPERATIVE.
[2024-04-24] MEDS ORDERED: Menthol/Methyl Salicylate Crm 85 GM TUBE TOP SCH (17:00)
[2024-04-24 20:37] VITALS: BP 162/84
[2024-04-25 04:55] VITALS: BP 129/53
--- NOTE | 2024-04-25 05:01 | NUR ---
SHIFT SUMMARY KIARA WAS ALERT AND ORIENTED TO SELF AND PLACE AT START OF SHIFT. PT IS MEDICALLY STABLE AT THIS TIME, NO CHANGES OCCURRED THIS SHIFT, PT HAS C/O TOOTH PAIN. PT RESTING IN BED AT A LOW POSITION WITH CALL LIGHT IN REACH.
[2024-04-25 08:11] VITALS: BP 139/67
[2024-04-25] MEDS ORDERED: MetFORMIN HCl 500 mg PO ONE (12:40)
[2024-04-25 16:07] VITALS: BP 135/76
--- NOTE | 2024-04-25 17:21 | NUR ---
SHIFT SUMMARY; PATIENT VERY CONFRONTATIONAL TODAY. REFUSING VITAL SIGNS AND CHEMBG THIS AM. THEN ALLOWED VITAL SIGNS BUT STILL NO CHEM BG. PATIENT DEMANDING STAFF ATTENTION OFTEN. NOT REDIRECTABLE. STAFF ACCOMADATES PATIENT OFTEN POSSIBLE. WILL REMAIN AVAILABLE FOR THIS PATIENT FOR ANY WANTS OR NEEDS THAT COME UP PRIOR TO SHIFT CHANGE.
[2024-04-25 20:09] VITALS: BP 144/56
--- NOTE | 2024-04-26 04:47 | NUR ---
SHIFT SUMMARY CHU WAS ALERT AND ORIENTED TO [facility] AND THIS RN AT START OF SHIFT NO CHANGES TO PT CONDITION, PT MEDICALLY STABLE. BED LOW CALL LIGHT IN REACH
--- NOTE | 2024-04-26 05:33 | NUR ---
@ 0500am Patient refused vital signs this morning.
[2024-04-26 07:26] VITALS: BP 149/60
[2024-04-26] MEDS ORDERED: Ibuprofen 400 MG Tab PO PRN (10:55)
--- NOTE | 2024-04-26 12:08 | NUR ---
THIS RN PROVIDING BREAK COVERAGE FOR PRIMARY RN.
[2024-04-26 15:07] VITALS: BP 140/57
--- NOTE | 2024-04-26 18:07 | NUR ---
SHIFT SUMMARY; PATIENT CONFRONTATIONAL THROUGHOUT DAY WITH STAFF. DOES NOT LIKE FOOD THAT WAS PROVIDED BY DIETARY. ATTEMTS TO GET HER SOMETHING SHE WOULD LIKE ARE UNSUCCESSFUL. PATIENT COMPLAINS OF MEDICATION BEING SCANNED IN HER ROOM AND WANTS PACKAGES LEFT OUT OF HER ROOM IT "CLUTTERS HER GARBAGE" THEN COMPLAINS SHE WANTS TO READ THEM THIS RN HANDS THEM TO HER AND SHE SAYS SHE DOES NOT WANT ANYTHING THAT HAS A BAR CODE ON IT SHE DOES NOT KNOW WHAT THE BARCODE MEANS. PATIENT CALLS ACC DESK COMPLAINING ABOUT NURSING NOT SCANNING THE RIGHT MEDICATION IN HER ROOM. ATTEMPTS TO SHOW PATIENT THAT MEDICATION IS CORRECT AND IT IS ON HER EMAR ARE UNSUCCSSFUL.
[2024-04-26 19:11] VITALS: BP 171/43
--- NOTE | 2024-04-27 04:31 | NUR ---
SHIFT SUMMARY PATIENT HAD NO ACUTE CHANGES. AXOX 3 WITH CONFUSION. HX DEMENTIA. NO IV ACCESS. DENIES CHEST PAIN, SOB, AND N/V. HYPERTENSIVE/AFEBRILE. SLEPT SECOND PART OF SHIFT. NO AGITATION OBSERVED. CALL LIGHT IN REACH. BED IN LOWEST POSITION. WILL CONTINUE TO MONITOR UNTIL DAY SHIFT NURSE ASSUMES CARE.
[2024-04-27 07:18] VITALS: BP 127/71
[2024-04-27 15:30] VITALS: BP 126/64
--- NOTE | 2024-04-27 18:12 | NUR ---
PT CONTINUES TO BE QUITE PLEASANT TODAY. PAIN MANAGED WITH AVAIL MEDS THIS AM. TOOTH PAIN. PT TOOK SHOWER THIS AM. STILL PENDING D/C TO SNF WHEN AVAIL. NO OTHER NEW CONCERNS NOTED TODAY. BED IN LOW POSITION, CALL LITE IN REACH, CALLS APPROP
[2024-04-27 19:17] VITALS: BP 134/59
--- NOTE | 2024-04-28 05:11 | NUR ---
SHIFT SUMMARY PATIENT REPORTED TOOTH PAIN X ONE AND IBUPROFEN 800 MG GIVEN PER EMAR. AXOX 3 AND INDEPENDENT IN ROOM. DENIES CHEST PAIN, SOB, AND N/V. VSS/AFEBRILE. REFUSED SECOND SET OF VITALS. COOPERATIVE WITH CARE. CALL LIGHT IN REACH. BED IN LOWEST POSITION. WILL CONTINUE TO MONITOR UNTIL DAY SHIFT NURSE ASSUMES CARE.
[2024-04-28 07:30] VITALS: BP 104/59
[2024-04-28 09:14] VITALS: BP 113/50
[2024-04-28 15:23] VITALS: BP 104/89
--- NOTE | 2024-04-28 17:25 | NUR ---
PT PLEASANT TODAY. AMBULATED INDEPENDANTLY IN ROOM. TOOTH PAIN COVERED TO PT SATISFACTION PER EMAR. STILL PENDING TRANSFER TO SNF. BED IN LOW POSITION, CALL LITE IN REACH, CALLS APPROP
[2024-04-28 20:14] VITALS: BP 141/59
--- NOTE | 2024-04-29 04:24 | NUR ---
SSHIFT SUMMARY PATIENT HAD NO ACUTE CHANGES. AXOX 3 AND INDEPENDENT IN ROOM. WILL CALL APPROPRIATELY. REPORTED TOOTH PAIN X ONE AND IBUPROFEN 800 MG GIVEN PER EMAR. DENIES CHEST PAIN, SOB, AND N/V. VSS/AFEBRILE. COOPERATIVE WITH CARE. CALL LIGHT IN REACH. BED IN LOW POSITION. WILL CONTINUE TO MONITOR UNTIL DAY SHIFT NURSE ASSUMES CARE.
[2024-04-29 07:59] VITALS: BP 107/65
[2024-04-29 15:22] VITALS: BP 121/65
--- NOTE | 2024-04-29 18:31 | NUR ---
SHIFT SUMMARY PT AOX4, NO ACUTE CHANGES THIS SHIFT. SHE IS INDEPENDENT IN THE ROOM. CALLS WHEN SHE HAS A NEED. WAITING ON PLACEMENT. MEDICATED FOR TOOTH PAIN PER THE EMAR. CALL LIGHT WITHIN REACH, BED LOCKED AND IN THE LOWEST POSITION. WILL REPORT TO ONCOMING NURSE.
[2024-04-29 19:50] VITALS: BP 138/68
[2024-04-30 03:11] VITALS: BP 116/63
--- NOTE | 2024-04-30 04:04 | NUR ---
SHIFT SUMMARY PT VERY TALKATIVE AND PLEASANT. SEEMS TO RUN HER WORDS TOGETHER. REPEATS SAME STORIES OVER AND OVER AGAIN. SLEPT WELL THROUGH NIGHT.
[2024-04-30 07:54] VITALS: BP 121/61
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
[2024-04-30 15:50] VITALS: BP 140/72
--- NOTE | 2024-04-30 17:49 | NUR ---
SHIFT SUMMARY PT AOX4, PARANOID AND DELUSIONAL AT TIMES. MEDICATED FOR TOOTH PAIN PER THE EMAR. NO ACUTE CHANGES. WAITING ON PLACEMENT. CALL LIGHT WITHIN REACH, BED LOCKED AND IN THE LOWEST POSITION. WILL REPORT TO ONCOMING NURSE.
[2024-04-30 19:35] VITALS: BP 157/48
[2024-05-01 05:15] VITALS: BP 126/68
--- NOTE | 2024-05-01 06:38 | NUR ---
SHIFT SUMMARY NO ACUTE EVENTS OVERNIGHT. PRN IBUPROFEN GIVEN X1 FOR TOOTH PAIN TO LEFT UPPER MANDIBLE
[2024-05-01 07:55] VITALS: BP 146/64
[2024-05-01 15:18] VITALS: BP 123/68
--- NOTE | 2024-05-01 16:37 | NUR ---
DAYSHIFT SUMMARY Patient alert & oriented x2-3. Doing well this shift. Declined lovenox this morning. She has been resting comfortably t/o the shift. This evening reported severe pain d/t toothache. PRN tylenol & ibuprofen administred. Will continue plan of care, awaiting discharge planning.
[2024-05-02 08:58] VITALS: BP 138/63
--- NOTE | 2024-05-02 18:18 | NUR ---
SHIFT SUMMARY: NO EVENTS OR CHANGES WITH THE PATIENT THROUGHOUT THE SHIFT. SHE WAS PLEASANT TODAY. HER FEET LOOK GOOD; NO OPEN AREAS, BLOOD BLISTER OF L HEEL. SHE HAS BEEN IN HER ROOM, INDEPENDENT TO THE BEDSIDE COMMODE, MAKES HER NEEDS KNOWN, CALL LIGHT WITHIN REACH, NO SIGNS OR SYMPTOMS OF DISTRESS, PLAN OF CARE ONGOING.
[2024-05-02 19:59] VITALS: BP 145/70
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
[2024-05-03 07:35] VITALS: BP 125/50
[2024-05-03 15:55] VITALS: BP 139/59
--- NOTE | 2024-05-03 16:04 | NUR ---
SHIFT SUMMARY: PATIENT A/OX3, PLEASANT AND COOPERATIVE c CARE THIS SHIFT. PATIENT CONTINENCE OF BLADDER, USES BSC INDEPENDENLTY. PATIENT REPORTS PAIN TO R THIGH AND BILAT KNEE, MEDICATED c TOP CREAM AND PO PRN PAIN MEDS c GOOD EFFECT. PATIENT HAS NO IV ACCESS PER ORDER. PATIENT REFUSED SCHEDULED LEVONOX THIS AM. VITAL SIGNS REVIEWED. PATIENT HAS NO COMPLAINTS OR DENIES NEW CONCERNED, WHEN ASKED T/O SHIFT. PATIENT DANGLING ON THE EOB ON/OFF T/O SHIFT. CALL LIGHT IN REACH.
--- NOTE | 2024-05-03 16:28 | NUR ---
SHIFT SUMMARY: PATIENT A/OX3-4 CALM, PLEASANT AND COOPERATIVE c CARE. PATIENT USES CALL LIGHT APPROPRIATELY AND ABLE TO MAKE NEEDS KNOWN. PATIENT DENIES CP/PRESSURE, SOB, N/V AND DIZZINESS. PATIENT ON TELE, AFIB HR IN THE HIGH 90'S BPM c OCCASIONAL PVC/BBB. PATIENT K 3.0 LAB RESULT THIS AM, RECEIVED OT DOSE IV K CHLORIDE AND PO. PATIENT HAS GOOD APPETITE, CONTINENCE OF BOWEL/BLADDER, AMBULATES TO BATHROOM/BACK IN CHAIR c SBA, GAIT BELT/FWW. PATIENT HAS POWERGLIDE TO NADINE INFUSING IV ABX. VITAL SIGNS REVIEWED. PATIENT HAS NO COMPLAINTS OR DENIES NEW CONCERNED, WHEN ASKED T/O SHIFT. PATIENT SITTING UP IN THE RECLINER CHAIR ALL SHIFT. CHAIR ALARM ON FOR SAFETY. CALL LIGHT IN REACH.
--- NOTE | 2024-05-04 04:08 | NUR ---
SHIFT SUMMARY PATIENT IS ALERT AND ORIENTED X2-3. PATIENT HAS HAD NO ACUTE EVENTS THIS SHIFT. VITAL SIGNS REVIEWED. PATIENT HAS REFUSED EVENING MEDICATIONS. PATIENT REFUSED EVENING BLOOD SUGAR. PATIENT HAS BEEN SLEEPING ON AND OFF WITH OCCASIONAL DELUSIONS AND PARANOIA. PATIENT HAS HAD NO COMPLAINTS OF PAIN, NAUSEA, SOB OR VOMITTING THIS SHIFT. PATIENT HAS BEEN IND TO [facility] THIS SHIFT. BED IN LOCKED AND LOWEST POSITION. CALL LIGHT IN PLACE. WILL MONITOR UNTIL SHIFT CHANGE.
[2024-05-04 07:32] VITALS: BP 131/62
[2024-05-04 14:45] VITALS: BP 147/52
--- NOTE | 2024-05-04 15:41 | NUR ---
SHIFT SUMMARY: PATIENT HAS NO NEW ACUTE CHANGES THIS SHIFT. PATIENT A/OX3, CALM, PLEASANT AND COOPERATIVE c CARE ALL SHIFT. PATIENT HAS GOOD APPETITE, CONTIN OF BLADDER AND USES BSC INDEPENDENTLY. PATIENT MEDICATED FOR PAIN PER EMAR c GOOD EFFECT. PATIENT HAS NO COMPLAINTS OR DENIES NEW CONCERNED THIS SHIFT. VITAL SIGNS REVIEWED. CALL LIGHT IN REACH.
[2024-05-04 20:12] VITALS: BP 141/58
--- NOTE | 2024-05-05 03:15 | NUR ---
RELIGION INSTRUCTOR SUMMARY VSS. BEHAVIOR AND MOOD CONTINUES TO BE FRAGILE. EASILY AGITATED. QUICK TO GET ANGRY. UP AD AIME. ABLE TO REPOSITION SELF IN BED WITHOUT ASSIST. MEDICATED FOR PAIN - SEE MAR FOR DETAILS, BUT NOT RECEPTIVE TO OTHER MEDS. HAS BEEN RESTING QUIETLY WITH OCCASIONAL INTERRUPTIONS. CALL LIGHT IN REACH, BED IN LOW POSITION AND RAILS UP X 2 FOR SAFETY. WILL CONTINUE TO MONITOR.
[2024-05-05 07:44] VITALS: BP 123/86
[2024-05-05 14:55] VITALS: BP 137/50
--- NOTE | 2024-05-05 15:31 | NUR ---
SHIFT SUMMARY: PATIENT A/OX3, CALM, PLEASANT AND COOPERATIVE c CARE ALL SHIFT. PATIENT HAS HAD NO NEW ACUTE CHANGES THIS SHIFT. PATIENT MEDICATED FOR PAIN PER EMAR c GOOD EFFECT. PATIENT SHOWERED AND LINEN CHANGED THIS SHIFT, CONTINENCE OF BOWEL/BLADDER USES BSC INDEPENDENTLY T/O SHIFT. PATIENT HAS NO COMPLAINTS OR DENIES NEW CONCERNED THIS SHIFT. VITAL SIGNS REVIEWED. NO IV ACCESS PER ORDER. PATIENT AWAITING FOR MEDICAID LTC APPROVAL. PATIENT RESTING IN BED ON/OFF T/O SHIFT c CALL LIGHT IN REACH.
[2024-05-05 21:20] VITALS: BP 128/97
--- NOTE | 2024-05-05 21:34 | NUR ---
TOOK OVER FOR PRIMARY NURSE WHEN HE TOOK HIS BREAK. PT DENIES NEEDS AT THIS TIME.
--- NOTE | 2024-05-06 04:04 | NUR ---
GUARDIAN AD LITEM SUMMARY VSS. REMAINS QUIET, WITH SUSPICIOUS AFFECT WHEN STAFF ASSESSING HER. REFUSING MOST MEDS, OCCASIONAL RECEPTIVENESS OF PAIN MEDS. UP AD AIME, ABLE TO REPOSITION SELF IN BED FOR COMFORT AND SKIN MAINTENANCE. HAS BEEN RESTING QUIETLY WITH FEW INTERRUPTIONS THIS SHIFT. CALL LIGHT IN REACH, RAILS UP X 2 AND BED IN LOW POSITION FOR SAFETY. WILL CONTINUE TO MONITOR
--- NOTE | 2024-05-06 04:22 | NUR ---
ASSUMED CARE OF PT WHILE PRIMARY NURSE ON BREAK. PT DENIES NEEDS AT THIS TIME.
[2024-05-06 08:35] VITALS: BP 134/69
[2024-05-06 15:24] VITALS: BP 127/85
[2024-05-06] MEDS ORDERED: Methyl Salicylate/Menth/Camph 57 GM TUBE TOP SCH (16:00)
--- NOTE | 2024-05-06 18:18 | NUR ---
SHIFT SUMMARY A&OX3, REFUSED SOME MEDS AND CBG ACCU CHECKS T/O SHIFT. COMPLAINED OF TOOTH PAIN. MEDICATED PER EMAR. DIMINISHED LUNG SOUNDS T/O. LBM TODAY. DENIED CP/PRESSURE, HEADACHE, DIZZINESS, OR SOB. NO ACUTE EVENTS THIS SHIFT. REPAIRER SASH AND DOOR FROM [employer] VISITED WITH PATIENT. SHE STATED THAT THEY WILL ACCEPT HER PROBABLY NEXT WEEK DEPENDENT ON INSURANCE AUTH. PATIENT SITTING ON SIDE OF BED EATING DINNER. BED IN THE LOWEST POSITION. CALL LIGHT WITHIN REACH.
[2024-05-06 19:37] VITALS: BP 151/65
--- NOTE | 2024-05-07 05:45 | NUR ---
DEMOLITION SPECIALIST SUMMARY VSS. FLAT AFFECT, COOPERATIVE WITH FEW TREATMENTS, REFUSING MOST MEDS AND REFUSING VITAL SIGNS "BEFORE 08 AM". HAS BEEN RESTING QUIETLY WITH FEW INTERRUPTIONS. ABLE TO REPOSITION SELF IN BED WITHOUT ASSIST. RAILS UP X 2, CALL LIGHT IN REACH AND BED IN LOW POSITION FOR SAFETY. WILL CONTINUE TO MONITOR
[2024-05-07 07:39] VITALS: BP 116/64
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
[2024-05-07 15:54] VITALS: BP 130/70
--- NOTE | 2024-05-07 16:46 | NUR ---
SHIFT SUMMARY A&OX3, COOPERATIVE, REFUSED A MED THIS MORNING AND SOME PARANOIA NOTED T/O SHIFT. DENIED CP/PRESSURE, HEADACHE, DIZZINESS, OR SOB. COMPLAINED OF TOOTH PAIN AND MEDICATED PER EMAR. NO ACUTE CHANGES THIS SHIFT. LSCTA. PATIENT CURRENTLY SITTING ON THE SIDE OF THE BED. BED IN THE LOWEST POSITION. CALL LIGHT WITHIN REACH.
[2024-05-07 19:16] VITALS: BP 149/47
--- NOTE | 2024-05-08 04:52 | NUR ---
SHIFT SUMMARY. PATIENT IS A&OX2-PERSON AND PLACE. PATIENT C/O A TOOTH ACHE THIS SHIFT-MEDICATED PER EMAR FOR PAIN. PATIENT REFUSED MIDNIGHT MEDICATION. PATIENT SLEPT T/O MOST OF SHIFT WITH RESPIRATIONS EQUAL AND UNLABORED. NO ACUTE CHANGES NOTED. BED IS LOCKED IN THE LOWEST POSITION WITH CALL LIGHT IN REACH. CARE IS ONGOING.
--- NOTE | 2024-05-08 07:12 | NUR ---
ASSUMED CARE: PT RESTING IN BED AT THIS TIME. NO ACUTE NEEDS OR CONCERNS.
[2024-05-08 07:16] VITALS: BP 126/58
[2024-05-08 15:39] VITALS: BP 140/59
--- NOTE | 2024-05-08 18:24 | NUR ---
SHIFT SUMMARY: PT AWAITING PLACEMENT. HAS BEEN INDEPENDENT IN ROOM, MEDICATED FOR TOOTH PAIN X1. DENIES FURTHER NEEDS OR CONCERNS AT THIS TIME.
[2024-05-08 19:44] VITALS: BP 142/61
--- NOTE | 2024-05-09 04:34 | NUR ---
SHIFT SUMMARY. PATIENT IS A&OX2-3. PATIENT IS ABLE TO MAKE HER NEEDS KNOWN. PATIENT C/O TOOTH ACHE AT BEGINNING OF SHIFT AND SHE REPORTS THAT SHE JUST HAD IBUPROPHEN AND IT WOULD TAKE CARE OF HER PAIN-NO FURTHER C/O PAIN. PATIENT SLEPT WELL T/O NIGHT WITH RESPIRATIONS EQUAL AND UNLABORED. PATIENT UPSET THIS AM WITH MORNING VITALS AND REFUSED VITALS TO BE TAKEN, PATIENT NON-RECEPTIVE TO EDUCATION. PATIENTS BED IS LOCKED IN THE LOWEST POSITION WITH CALL LIGHT IN REACH. CARE IS ONGOING.
[2024-05-09 07:30] VITALS: BP 117/63
[2024-05-09 15:14] VITALS: BP 140/69
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
[2024-05-09 19:23] VITALS: BP 164/78
--- NOTE | 2024-05-10 04:48 | NUR ---
SHIFT SUMMARY. PATIENT IS A&OX4 WITH CONFUSION. PATIENT IS PLEASANT AND COOPERATIVE WITH CARE. PATIENT REFUSED 0000 BENGAY. PATIENT PROVIDED SNACKS PER REQUEST. PATIENT SLEPT WELL T/O NIGHT WITH RESPIRATIONS EQUAL AND UNLABORED. PATIENT C/O TOOTH PAIN-IBUPROPHEN GIVEN PER ORDERS-SEE ORDERS. BED IS LOCKED IN THE LOWEST POSITION WITH CALL LIGHT IN REACH. CARE IS ONGOING. NO ACUTE CHANGES NOTED THIS SHIFT.
[2024-05-10 07:28] VITALS: BP 100/53
[2024-05-10 14:47] VITALS: BP 124/52
--- NOTE | 2024-05-10 18:40 | NUR ---
REPORT RECEIVED VERIFIED, A/O X4 PLEASENT BUT CAN BECOME CONFRONTATIONAL. PT QUIETLY UP AT BEDSIDE NO CHANGE IN CONDITION AND CAN MAKE NEEDS KNOWN, VSS SKIN IS INTACT NO IV ACCESS. WILL CONT TO MONITOR PT
--- NOTE | 2024-05-11 06:41 | NUR ---
END OF SHIFT SUMMARY PT A&OX3-4, ANSWERS QUESTIONS APPROPRIATELY BUT THEN ALSO MAKES NONSENSICAL REMARKS SUCH "THEY'RE SPRAYING HAIRSPRAY TO COVER THE SUN. I'M ALLERGIC TO HAIRSPRAY. CAMRON-OZZIE IS BEHIND IT ALL. WHEN ANA PAULA GETS BACK IN OFFICE, HES GOING TO FIX ALL THAT." PT DID NOT ALLOW FULL ASSESSMENT, STATING "I DONT NEED THAT." PT UP TO BSC INDEPENDENTLY WITH SHUFFLING GAIT. CALLS APPROPRIATELY.
[2024-05-11 07:17] VITALS: BP 109/59
[2024-05-11 15:02] VITALS: BP 132/58
[2024-05-11 19:05] VITALS: BP 115/82
--- NOTE | 2024-05-11 19:20 | NUR ---
report recieved verified pt has had no changes and is pleasently sitting at side of be cooperative and able to make needs known. pain medication given for tooth pain throughout the day, yoandy fluids and diet.
--- NOTE | 2024-05-12 05:28 | NUR ---
END OF SHIFT SUMMARY PT A&OX4, ANSWERS ORIENTATION QUESTIONS APPROPRIATELY. PT FIXATED ON POLITICAL TOPICS AND CONSPIRACIES. PARANOID AT TIMES, QUESTIONING WHY STAFF IS COMING INTO HER ROOM, DESPITE EDUCAION AND EXPLAINING WHY WE DO ROUNDS. NO ACUTE EVENTS OVERNIGHT.
[2024-05-12 07:30] VITALS: BP 133/71
[2024-05-12 15:02] VITALS: BP 132/61
--- NOTE | 2024-05-12 18:32 | NUR ---
REPORT RECEIVED VERIFIED PT A/O VSS BEEN VERY PLEASENT TODAY AND ANTICIPATING GOING HOME THIS WEEK. NO CHANGE IN CONDITION CALLS APPROPRIATLY AND MAKES NEEDS KNOWN. WILL CONT MONITOR
[2024-05-12 19:29] VITALS: BP 153/69
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
[2024-05-13 07:09] VITALS: BP 116/67
[2024-05-13 15:23] VITALS: BP 150/53
--- NOTE | 2024-05-13 17:14 | NUR ---
SHIFT SUMMARY A&OX3, COOPERATIVE, HAS SOME PARANOIA REGARDING PERSONAL BELONGINGS BEING MESSED WITH. DENIES CP/PRESSURE, HEADACHE, DIZZINESS, OR SOB. IND IN ROOM. LBM THIS SHIFT. COMPLAINED OF TOOTHACHE AND MEDICATED PER EMAR. NO ACUTE CHANGES THIS SHIFT. CURRENTLY WATCHING TV IN BED. BED IN THE LOWEST POSITION. CALL LIGHT WITHIN REACH.
[2024-05-13 20:44] VITALS: BP 137/60
--- NOTE | 2024-05-14 07:42 | NUR ---
END OF SHIFT SUMMARY PT A&OX4 WITH PARANOIA, IRRITABLE AND DOES NOT WISH TO BE WOKEN UP FOR CARE. UP TO BSC INDEPENDENTLY. NO ACUTE ISSUES OVERNIGHT.
[2024-05-14 16:35] VITALS: BP 132/59
--- NOTE | 2024-05-14 17:49 | NUR ---
SHIFT SUMMARY: PT A&O X4. COOPERATIVE THIS SHIFT. NO ACUTE CHANGES TO REPORT. PLAN FOR PT TO D/C TO [facility] Monday05/16/24. CALL LIGHT IN REACH. BED IN LOWEST POSITION.
[2024-05-14 19:37] VITALS: BP 126/86
--- NOTE | 2024-05-15 04:36 | NUR ---
NOC SHIFT SUMMARY PT COOPERATIVE WITH CARES EXCEPT REFUSED SECOND SET OF VITALS. NO COMPLAINTS. RESTED WELL ALL NIGHT. EXPECTING DISCHARGE ON MONDAY. CALL LIGHT WITHIN REACH.
[2024-05-15 07:46] VITALS: BP 158/70
[2024-05-15 15:55] VITALS: BP 127/72
--- NOTE | 2024-05-15 15:59 | NUR ---
Patient is sitting on EOB and alert. 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 She shares about her fears of going to a new facility (possibly tomorrow). She has a few rants about her political beliefs and her dental and medical advice for all in her care. She is tearful about not having visits from this security solutions architect at [facility]. I provided therapeutic listening, anxiety containment and prayer. Patient hugs me and verbalizes her appreciation. SHe shows signs of reduced stress.
--- NOTE | 2024-05-15 17:39 | NUR ---
SHIFT SUMMARY: PT A&O X4 BUT FORGETFUL AND OCCASIONALLY ANXIOUS. NO ACUTE CHANGES THIS SHIFT. PT TO D/C TOMORROW TO [facility]. CALL LIGHT IN REACH. BED IN LOWEST POSITION.
[2024-05-15 21:53] VITALS: BP 155/65
--- NOTE | 2024-05-16 05:34 | NUR ---
PATIENT CONTINUES TO REPORT TOOTH PAIN. IBUPROPHEN AND TYLENOL WERE GIVEN WITH GOOD EFFECT. ICE PACK WAS OFFERED BUT REFUSED.
[2024-05-16 07:52] VITALS: BP 138/62
[2024-05-16] MEDS ORDERED: Glucotrol Xl10 MG PO (10:35)
[2024-05-16] MEDS ORDERED: LOSARTAN-HCTZ1 EACH PO (10:36)
[2024-05-16] MEDS ORDERED: [UNRECOGNIZED DRUG - OTHER] TOP (10:41)
[2024-05-16] MEDS ORDERED: Acetaminophen650 M1 PO (10:42)
--- NOTE | 2024-05-16 12:11 | NUR ---
CANNERY WORKER NOTE [id number] PT REFUSED CBG THIS AM
--- NOTE | 2024-05-16 12:24 | NUR ---
DISCHARGE NOTE PATIENT A/OX4 WITH DELUSIONS THIS SHIFT. PATIENT DENIED PAIN. REFUSED BLOOD GLUCOSE CHECKS THIS AM. PATIENT WITH DISCHAREG ORDERS TODAY TO [facility]. PATIENT AWARE AND AGREEABLE. LEFT WITH ALL BELONGING IN THE ROOM VIA WHEELCHAIR AND SCHEDULED TRANSPORTATION. NO CONCERNS AT THIS TIME. REPORT GIVEN TO BRONSON AT [facility].
--- NOTE | 2024-05-16 12:34 | NUR ---
DC-1320 PT DC AND LEFT VIA TRANSPORT IN STABLE CONDITION WITH ALL BELONGINGS.
--- NOTE | 2024-05-16 16:45 | NUR ---
REVIEWED AND AGREE WITH ALL NOTES AND ASSESSMENTS BY KIERAN SHEEHAN.
== END 2024-05-16 12:22 | DRG 871 ==
LOC: ER 18:10 → MEDS 18:11
PROVIDERS: Family Medicine; Internal Medicine; Nurse Practitioner; ADMIT Internal Medicine
DX: A41.52 Sepsis due to Pseudomonas (principal); G93.41 Metabolic encephalopathy; N39.0 Urinary tract infection, site not specified; E87.20 Acidosis, unspecified; Z59.00 Homelessness unspecified; R65.20 Severe sepsis without septic shock; L55.1 Sunburn of second degree; E11.65 Type 2 diabetes mellitus with hyperglycemia; I10 Essential (primary) hypertension; I69.811 Memory deficit following other cerebrovascular disease; I69.898 Other sequelae of other cerebrovascular disease; R26.89 Other abnormalities of gait and mobility; I69.818 Other symptoms and signs involving cognitive functions following other cerebrovascular disease; E11.42 Type 2 diabetes mellitus with diabetic polyneuropathy; E66.9 Obesity, unspecified; E87.6 Hypokalemia; L89.151 Pressure ulcer of sacral region, stage 1; E11.51 Type 2 diabetes mellitus with diabetic peripheral angiopathy without gangrene; Z88.0 Allergy status to penicillin; Z79.899 Other long term (current) drug therapy; Z79.84 Long term (current) use of oral hypoglycemic drugs; Z68.25 Body mass index [BMI] 25.0-25.9, adult
CPT/HCPCS: 36415; 51702; 80048; 80053; 81001; 82550; 82947; 83605; 85025; 85027; 87040; 87077; 87086; 87186; 96361; 96361-59; 96365; 96366; 97129; 97165; 99284-25; A9270; G0378; J0696; J0713; J1650; J7030

== ENCOUNTER 2024-05-23 09:56 | Emergency (ER) | payer MEDICARE ==
[~2024-05-23] VITALS: Ht 162.6 cm; Wt 74.8 kg
[~2024-05-23 09:56] MED LIST changes: +Acetaminophen650 M1 PO; +Glucotrol Xl10 MG PO; +LOSARTAN-HCTZ1 EACH PO; +[UNRECOGNIZED DRUG - OTHER] TOP
[2024-05-23 10:03] VITALS: BP 107/65
[2024-05-23] MEDS ORDERED: HYDR1TAB94 PO (10:47)
[2024-05-23] MEDS ORDERED: CLIN300 PO (10:54)
[2024-05-23] MEDS ORDERED: IBUP600 PO (13:20)
== END 2024-05-23 11:30 | disposition home or self-care (01) ==
LOC: ER 09:56
DX: K04.7 Periapical abscess without sinus (principal); Z88.0 Allergy status to penicillin; Z79.899 Other long term (current) drug therapy; Z79.84 Long term (current) use of oral hypoglycemic drugs; Z91.018 Allergy to other foods; I10 Essential (primary) hypertension; E11.9 Type 2 diabetes mellitus without complications
CPT/HCPCS: 99283